=== PATIENT | female | born 1965 | race Two or more races ===

== ENCOUNTER 2020-09-28 07:37 | Outpatient (REF) | payer BC, SELFPAY ==
[2020-09-28 11:14] LABS: MANUAL DIFF FLAG NO
[2020-09-28 11:20] LABS: Basophils Percent Auto 0.4 % (0-2); Eosinophils Absolute Auto 0.2 X10*3/uL (0.0-0.4); Eosinophils Percent Auto 2.8 % (0-4); Hematocrit 45.9 % (37-47); Hemoglobin 14.4 g/dl (12.0-16.0); Imm Gran Abs Auto 0.02 X10*3/uL (0.00-0.03); Imm Gran Pct Auto 0.3 % (0.0-0.4); Lymphocytes Absolute Auto 3.1 X10*3/uL (1.2-4.9); Lymphocytes Percent Auto 43.9 % (20-40); Mean Corpuscular HGB Conc 31.4 g/dl (31.0-35.0); Mean Corpuscular Hemoglobin 28.7 pg (27.0-33.0); Mean Corpuscular Volume 91.4 fL (80-98); Mean Platelet Volume 12.5 fL (9.4-12.3); Monocytes Absolute Auto 0.6 X10*3/uL (0.1-1.2); Monocytes Percent Auto 8.5 % (2-11); Neutrophils Absolute Auto 3.1 X10*3/uL (2.0-8.3); Neutrophils Percent Auto 44.1 % (45-73); Platelet Count 238 X10*3/uL (160-400); Red Blood Count 5.02 X10*6/uL (4.20-5.50); Red Cell Distribution Width 12.7 % (11.0-16.0); White Blood Count 7.1 X10*3/uL (4.8-10.8)
[2020-09-28 11:57] LABS: Alanine Aminotransferase 31 U/L (0-31); Albumin Level 4.4 g/dL (3.5-5.0); Alkaline Phosphatase 76 U/L (39-117); Anion Gap 14 (12-20); Aspartate Amino Transferase 21 U/L (5-31); Bilirubin Direct 0.3 mg/dL (0.0-0.5); Bilirubin Total 1.1 mg/dL (0.0-1.0); Blood Urea Nitrogen 17 mg/dL (9-16); Calcium 9.1 mg/dL (8.4-10.2); Carbon Dioxide 27 mmol/L (22-29); Chloride 105 mmol/L (96-108); Cholesterol 223 mg/dL; Estimated Glomerular Filt Rate > 60; Glucose Fasting 85 mg/dL (60-99); HDL Cholesterol 36 mg/dL; LDL Cholesterol Calculated 113 mg/dl; Potassium 4.5 mmol/l (3.3-5.1); Sodium 141 mmol/L (135-145); Total Protein 7.5 g/dL (6.5-8.0); Triglycerides 372 mg/dL
[2020-09-28 12:00] LABS: TSH reflex Free T4 1.11 mIU/mL (0.32-4.0)
== END 2020-09-28 07:38 | disposition home or self-care (01) ==
LOC: HO.HMGCLDS 07:37
PROVIDERS: PCP Internal Medicine; Visit Provider Internal Medicine
DX: I10 Essential (primary) hypertension (principal)
CPT/HCPCS: 36415; 80048; 80061; 80076; 84443; 85025

== ENCOUNTER 2021-09-04 09:34 | Outpatient (REF) | payer BC, SELFPAY ==
[2021-09-04 11:33] LABS: Appearance Urine HAZY; Color Urine YELLOW; Glucose Urine UA NEG (NEG); Leukocyte Esterase Urine 1+ (NEG); Nitrite Urine NEG (NEG); Specific Gravity - Urine 1.025 (1.005-1.025); UACC Culture Trigger YES; Urine Blood NEG (NEG); Urine Ketones NEG (NEG); Urine Protein NEG (NEG-TRACE)
[2021-09-04 11:41] LABS: MANUAL DIFF FLAG NO
[2021-09-04 11:43] LABS: Basophils Absolute Auto 0.1 X10*3/uL (0.0-0.2); Basophils Percent Auto 0.6 % (0-2); Eosinophils Absolute Auto 0.2 X10*3/uL (0.0-0.4); Eosinophils Percent Auto 2.4 % (0-4); Hematocrit 45.7 % (37.0-47.0); Hemoglobin 14.9 g/dl (12.0-16.0); Imm Gran Abs Auto 0.03 X10*3/uL (0.00-0.03); Imm Gran Pct Auto 0.4 % (0.0-0.4); Lymphocytes Absolute Auto 3.1 X10*3/uL (1.2-4.9); Lymphocytes Percent Auto 39.4 % (20-40); Mean Corpuscular HGB Conc 32.6 g/dl (31.0-35.0); Mean Corpuscular Volume 89.1 fL (80.0-98.0); Mean Platelet Volume 12.2 fL (9.4-12.3); Monocytes Absolute Auto 0.6 X10*3/uL (0.1-1.2); Monocytes Percent Auto 7.9 % (2-11); Neutrophils Absolute Auto 3.8 x10*3/uL (2.0-8.3); Neutrophils Percent Auto 49.3 % (45-73); Platelet Count 248 X10*3/uL (160-400); Red Blood Count 5.13 X10*6/uL (4.20-5.50); White Blood Count 7.8 X10*3/uL (4.8-10.8)
[2021-09-04 11:44] LABS: Mucus Urine TRACE /LPF; RBC Urine 0 /HPF (0); Squamous Epithelial Cell Urine 3+ /LPF
[2021-09-04 12:30] LABS: TSH reflex Free T4 0.92 uIU/mL (0.32-4.0)
[2021-09-04 12:34] LABS: Alanine Aminotransferase 36 U/L (0-31); Albumin Level 4.5 g/dL (3.5-5.0); Alkaline Phosphatase 84 U/L (39-117); Anion Gap 14 (12-20); Aspartate Amino Transferase 24 U/L (5-31); Bilirubin Total 1.4 mg/dL (0.0-1.0); Blood Urea Nitrogen 13 mg/dL (9-16); Calcium 10.2 mg/dL (8.4-10.2); Carbon Dioxide 26 mmol/L (22-29); Chloride 106 mmol/L (96-108); Estimated Glomerular Filt Rate > 60; Glucose Random 82 mg/dL (60-115); Potassium 4.7 mmol/L (3.3-5.1); Sodium 141 mmol/L (135-145); Total Protein 7.7 g/dL (6.5-8.0)
[2021-09-06 04:02] LABS: LDL Cholesterol Direct 139 mg/dL (<100)
== END 2021-09-04 09:35 | disposition home or self-care (01) ==
LOC: HO.HMGCLDS 09:34
PROVIDERS: PCP Internal Medicine; Visit Provider Internal Medicine
DX: I10 Essential (primary) hypertension (principal); M65.312 Trigger thumb, left thumb; M65.322 Trigger finger, left index finger; M65.332 Trigger finger, left middle finger; M65.342 Trigger finger, left ring finger; M65.352 Trigger finger, left little finger; T21.21XA Burn of second degree of chest wall, initial encounter
CPT/HCPCS: 36415; 80053; 81001; 83721; 84443; 85025; 87086

== ENCOUNTER 2022-11-18 06:06 | Outpatient (REF) | payer BC, SELFPAY ==
[2022-11-18 10:58] LABS: MANUAL DIFF FLAG NO
[2022-11-18 11:04] LABS: Basophils Percent Auto 0.4 % (0-2); Eosinophils Absolute Auto 0.2 X10*3/uL (0.0-0.4); Eosinophils Percent Auto 2.4 % (0-4); Hematocrit 46.2 % (37.0-47.0); Imm Gran Abs Auto 0.02 X10*3/uL (0.00-0.03); Imm Gran Pct Auto 0.3 % (0.0-0.4); Lymphocytes Absolute Auto 3.4 X10*3/uL (1.2-4.9); Lymphocytes Percent Auto 49.6 % (20-40); Mean Corpuscular HGB Conc 32.5 g/dl (31.0-35.0); Mean Corpuscular Hemoglobin 28.7 pg (27.0-33.0); Mean Corpuscular Volume 88.3 fL (80.0-98.0); Mean Platelet Volume 12.3 fL (9.4-12.3); Monocytes Absolute Auto 0.6 X10*3/uL (0.1-1.2); Monocytes Percent Auto 9.5 % (2-11); Neutrophils Absolute Auto 2.6 x10*3/uL (2.0-8.3); Neutrophils Percent Auto 37.8 % (45-73); Platelet Count 239 X10*3/uL (160-400); Red Blood Count 5.23 X10*6/uL (4.20-5.50); White Blood Count 6.8 X10*3/uL (4.8-10.8)
[2022-11-18 11:33] LABS: Alanine Aminotransferase 33 U/L (0-31); Albumin Level 4.4 g/dL (3.5-5.0); Alkaline Phosphatase 74 U/L (39-117); Anion Gap 13 (12-20); Aspartate Amino Transferase 30 U/L (5-31); Bilirubin Total 1.5 mg/dL (0.0-1.0); Blood Urea Nitrogen 14 mg/dL (9-16); Calcium 9.8 mg/dL (8.4-10.2); Carbon Dioxide 26 mmol/L (22-29); Chloride 105 mmol/L (96-108); Cholesterol 277 mg/dL; Estimated Glomerular Filt Rate > 60; Glucose Fasting 91 mg/dL (60-99); HDL Cholesterol 38 mg/dL; LDL Cholesterol Calculated 161 mg/dl; Potassium 4.3 mmol/L (3.3-5.1); Sodium 140 mmol/L (135-145); Total Protein 7.4 g/dL (6.5-8.0); Triglycerides 392 mg/dL
[2022-11-23 15:33] LABS: Vitamin D 25-OH, D2 <4 ng/mL; Vitamin D 25-OH, D3 52 ng/mL; Vitamin D 25-OH, Total 52 ng/mL (30-100)
== END 2022-11-18 06:07 | disposition home or self-care (01) ==
LOC: HO.HMGCLDS 06:06
PROVIDERS: PCP Internal Medicine; Visit Provider Internal Medicine
DX: E80.4 Gilbert syndrome (principal); I10 Essential (primary) hypertension; R45.82 Worries; E66.09 Other obesity due to excess calories
CPT/HCPCS: 36415; 80053; 80061; 82306; 85025

== ENCOUNTER 2023-02-17 07:51 | Outpatient (REF) | payer BC, SELFPAY ==
[2023-02-17 12:19] LABS: Alanine Aminotransferase 29 U/L (0-31); Albumin Level 4.4 g/dL (3.5-5.0); Alkaline Phosphatase 84 U/L (39-117); Anion Gap 13 (12-20); Aspartate Amino Transferase 23 U/L (5-31); Bilirubin Total 1.1 mg/dL (0.0-1.0); Blood Urea Nitrogen 14 mg/dL (9-16); Calcium 9.8 mg/dL (8.4-10.2); Carbon Dioxide 26 mmol/L (22-29); Chloride 104 mmol/L (96-108); Cholesterol 156 mg/dL; Estimated Glomerular Filt Rate > 60; Glucose Fasting 85 mg/dL (60-99); HDL Cholesterol 35 mg/dL; LDL Cholesterol Calculated 72 mg/dl; Potassium 4.4 mmol/L (3.3-5.1); Sodium 139 mmol/L (135-145); Total Protein 7.6 g/dL (6.5-8.0); Triglycerides 249 mg/dL
== END 2023-02-17 07:52 | disposition home or self-care (01) ==
LOC: HO.HMGCLDS 07:51
PROVIDERS: PCP Internal Medicine; Visit Provider Internal Medicine
DX: Z00.01 Encounter for general adult medical examination with abnormal findings (principal); I10 Essential (primary) hypertension; E78.9 Disorder of lipoprotein metabolism, unspecified
CPT/HCPCS: 36415; 80053; 80061

== ENCOUNTER 2023-06-18 08:22 | Outpatient (AMB) | payer BC, SELFPAY ==
[2023-06-18 08:29] VITALS: BP 126/80; PULSE 68; O2SAT 95; BMI 31.4
--- NOTE | 2023-06-18 08:29 | MHC.PC.OV ---
Vital Signs 06/18/23 08:29 Height 5 ft 1 in Weight 166 lb 4 oz BMI 31.4 BP 126/80 Blood Pressure Location Rt brachial Position Sitting Pulse 68 Pulse Source Pulse Oximeter Pulse Oximetry (%) 95 Oxygen Delivery Method Room Air Intake Visit Reasons: 6M follow up Allergies pollen Allergy (Unknown, Uncoded 07/09/22 08:27) unknown Medication List - Last Reconciled 06/18/23 by Manoj Capellan MD aspirin (Adult Low Dose Aspirin) 81 mg PO DAILY atenolol 50 mg PO DAILY 90 days cholecalciferol (vitamin D3) 25 mcg PO DAILY simvastatin 10 mg PO DAILY Tobacco use date assessed: 06/18/23 Dental Screening Dental Screen Date: 06/18/23 Did you have a dental visit in the last 12 months?: Yes Did you have a dental problem in the last 6 months where you did not have access to dental care?: No Was dental information given to patient?: Patient has dentist HPI 6M follow up HPI Details Patient is a 58-year-old female came in today for a follow-up appointment Patient is in her usual state of health offer no new complaints today She is taking her medications without any side effects. Blood pressure is stable with atenolol 50 mg Patient is also on simvastatin 10 mg for lipid control and baby aspirin along with vitamin-D supplement Patient is due for labs order placed to be done Follow-up August [facility] Surgical History History of surgery History of foot surgery History of section Family History Father Diabetes mellitus History of heart attack Mother Brain cancer Social History Housing: House Patient Tobacco Use Status: Never used Tobacco e-Cigarette/Vaping Use: Never Used service: No Current occupational status: employed Cognitive needs: No Hearing needs: No Vision needs: Yes Questionnaire PHQ-9 Over the last 2 weeks, how often have you been bothered by any of the following problems? 1. Little interest or pleasure in doing things: not at all 2. Feeling down, depressed, or hopeless: not at all 3. Trouble falling or staying asleep, or sleeping too much: several days 4. Feeling tired or having little energy: several days 5. Poor appetite or overeating: not at all 6. Feeling bad about yourself - or that you are a failure or have let yourself or your family down: not at all 7. Trouble concentrating on things, such as reading the newspaper or watching television: not at all 8. Moving or speaking so slowly that other people could have noticed. Or the opposite - being so fidgety or restless that you have been moving around a lot more than usual: not at all 9. Thoughts that you would be better off or of hurting yourself in some way: not at all Total score: 2 Depression Screening Interpretation: Negative 13432 - PHQ-9 Billing: Yes Source: Developed by Drs. Dario Hathaway, Maki Hicks, Kaushal Cortes and colleagues, with an educational alda from [employer]. Thrive Questionnaire Date Thrive assessed: 09/04/21 AUDIT C Alcohol Use Questionnaire (AUDIT-C) 1. How often do you have a drink containing alcohol?: Never 3. How often do you have six or more drinks on one occasion?: Never Total Score: 0 Score Reviewed/Action Taken: Yes KALYAN-7 AMB Questionnaire KALYAN-7 Date KALYAN - 7 assessed: 09/12/21 Source: Developed by Drs. Dario Hathaway, Maki Hicks, Kaushal Cortes and colleagues, with an educational alda from [employer]. Review of Systems Const Denies chills and Denies fever(s) ENT Denies epistaxis and Denies nasal discharge Card Denies chest pain Resp Denies chest congestion, Denies cough and Denies hemoptysis GI Denies diarrhea and Denies nausea Skin/Breast Denies rash Neuro Reports no additional complaints Psych Reports no additional complaints Endo Reports no additional complaints Physical exam (Primary Care) Vital Signs: Last Vital Signs Pulse 68 06/18/23 08:29 BP 126/80 06/18/23 08:29 Pulse Ox 95 06/18/23 08:29 Oxygen Delivery Method Room Air 06/18/23 08:29 BMI result Body Mass Index 31.4 Tobacco/Smoking Status: Tobacco use Status Tobacco use date assessed 06/18/23 06/18/23 08:32 Patient Tobacco Use Status Never used Tobacco 06/18/23 08:32 e-Cigarette/Vaping Use Never Used 06/18/23 08:32 Depression Screening Interpretation: Negative Thrive Assessment: Date of Thrive Assessment Date Thrive assessed 09/04/21 06/18/23 08:32 Const General: cooperative, comfortable and no acute distress Orientation/consciousness: patient oriented x3 HENMT Head: Yes normocephalic Eyes General: appearance normal, both eyes and all related structures Neck Neck: Yes supple Resp Effort & Inspection: normal respiratory effort, no cough and no stridor Cardio Rhythm: regular rhythm Heart sounds: S1 normal heart sound present and S2 normal heart sound present Skin General skin exam: turgor normal Neuro General: patient oriented x3, tone normal and moves all extremities Extrem Right lower extremity: no edema Left lower extremity: no edema Assessment and Plan Assessment & Plan (1) Hypertension, essential: Code(s): I10 - Essential (primary) hypertension (2) Lipid disorder: Code(s): E78.9 - Disorder of lipoprotein metabolism, unspecified (3) Obesity due to excess calories: Comment: If your BMI is between 25 and 29.9, you are overweight. If your BMI is 30 or greater, you are obese. ___ Being obese is a problem, because it increases the risks of many different health problems. It can also make it hard for you to move, breathe, and do other things that people who are at a healthy weight can do easily. Plus, being obese can be hard emotionally. ___ What are the health risks of being obese? Being obese increases a persons risk of developing many health problems. Here are just a few examples: __ Diabetes High blood pressure, High cholesterol, Heart disease (including heart attacks) Stroke, Sleep apnea (a disorder in which you stop breathing for short periods while asleep) Asthma, Cancer __ Does being obese shorten a persons life? Yes. Studies show that people who are obese younger than people who are a healthy weight. They also show that the risk of goes up the heavier a person is. The degree of increased risk depends on how long the person has been obese, and on what other medical problems he or she has. , Reduce your carbohydrate intake and choose carbs that are complex. Remember as a general rule of thumb, avoid highly processed foods. If it's white and soft, it's probably been stripped of its nutritional value. Change white bread to whole wheat bread, white rice to brown rice, white potatoes to sweet potatoes, white pasta to whole wheat pasta. Monitor portion sizes too: protein should be no bigger than your fist. Limit your red meat intake to only once or twice a wk. Eat more white meat but make sure to avoid creamy sauces etc. Broiling, baking or grilling is best. Increase dark, green leafy vegetables and fruits. Code(s): E66.09 - Other obesity due to excess calories Qualifiers: Obesity classification: adult class 1 (BMI 30 - 34.9) Serious obesity comorbidity presence: with serious comorbidity Body mass index: BMI 31.0-31.9 Qualified Code(s): E66.09 - Other obesity due to excess calories; Z68.31 - Body mass index [BMI] 31.0-31.9, adult Plan Patient is a 58-year-old female came in today for a follow-up appointment Patient is in her usual state of health offer no new complaints today She is taking her medications without any side effects. Blood pressure is stable with atenolol 50 mg Patient is also on simvastatin 10 mg for lipid control and baby aspirin along with vitamin-D supplement BMI is elevated at 31.4, need to lose weight Patient is due for labs order placed to be done Follow-up August Orders: Orders Complete Blood Count Auto Diff Today I10 - Essential (primary) hypertension Comprehensive [place]. Panel Fast Today E78.9 - Disorder of lipoprotein metabolism, unspecified, I10 - Essential (primary) hypertension Lipid Panel Today E78.9 - Disorder of lipoprotein metabolism, unspecified, I10 - Essential (primary) hypertension Coding Level of Care Code Est Pt Level 4 (84196) Diagnoses Hypertension, essential I10 Lipid disorder E78.9 Class 1 obesity due to excess calories with serious comorbidity and body mass index (BMI) of 31.0 to 31.9 in adult E66.09; Z68.31 Obesity classification: adult class 1 (BMI 30 - 34.9) Serious obesity comorbidity presence: with serious comorbidity Body mass index: BMI 31.0-31.9
== END 2023-06-18 15:14 | disposition home or self-care (01) ==
PROVIDERS: Visit Provider Internal Medicine
DX: I10 Essential (primary) hypertension (principal); E78.9 Disorder of lipoprotein metabolism, unspecified; E66.09 Other obesity due to excess calories; Z68.31 Body mass index [BMI] 31.0-31.9, adult
CPT/HCPCS: 99214

== ENCOUNTER 2023-06-18 09:03 | Outpatient (REF) | payer BC, SELFPAY ==
[2023-06-18 11:58] LABS: MANUAL DIFF FLAG NO
[2023-06-18 12:04] LABS: Basophils Percent Auto 0.6 % (0-2); Eosinophils Absolute Auto 0.2 X10*3/uL (0.0-0.4); Eosinophils Percent Auto 2.1 % (0-4); Hematocrit 42.3 % (37.0-47.0); Hemoglobin 13.7 g/dl (12.0-16.0); Imm Gran Abs Auto 0.01 X10*3/uL (0.00-0.03); Imm Gran Pct Auto 0.1 % (0.0-0.4); Lymphocytes Absolute Auto 3.2 X10*3/uL (1.2-4.9); Lymphocytes Percent Auto 45.2 % (20-40); Mean Corpuscular HGB Conc 32.4 g/dl (31.0-35.0); Mean Corpuscular Volume 89.4 fL (80.0-98.0); Mean Platelet Volume 12.7 fL (9.4-12.3); Monocytes Absolute Auto 0.7 X10*3/uL (0.1-1.2); Monocytes Percent Auto 9.2 % (2-11); Neutrophils Percent Auto 42.8 % (45-73); Platelet Count 210 X10*3/uL (160-400); Red Blood Count 4.73 X10*6/uL (4.20-5.50); Red Cell Distribution Width 12.8 % (11.0-16.0)
[2023-06-18 12:14] LABS: Alanine Aminotransferase 31 U/L (0-31); Albumin Level 4.5 g/dL (3.5-5.0); Alkaline Phosphatase 68 U/L (39-117); Anion Gap 13 (12-20); Aspartate Amino Transferase 27 U/L (5-31); Bilirubin Total 1.2 mg/dL (0.0-1.0); Blood Urea Nitrogen 19 mg/dL (9-16); Calcium 9.8 mg/dL (8.4-10.2); Carbon Dioxide 26 mmol/L (22-29); Chloride 104 mmol/L (96-108); Cholesterol 180 mg/dL (<200); Estimated Glomerular Filt Rate > 60; Glucose Fasting 80 mg/dL (60-99); HDL Cholesterol 37 mg/dL (>40); LDL Cholesterol Calculated 119 mg/dL (<100); Potassium 4.4 mmol/L (3.3-5.1); Sodium 139 mmol/L (135-145); Total Protein 7.6 g/dL (6.5-8.0); Triglycerides 121 mg/dL (<150)
== END 2023-06-18 09:04 | disposition home or self-care (01) ==
LOC: HO.HMGCLDS 09:03
PROVIDERS: PCP Internal Medicine; Visit Provider Internal Medicine
DX: I10 Essential (primary) hypertension (principal); E78.9 Disorder of lipoprotein metabolism, unspecified
CPT/HCPCS: 36415; 80053; 80061; 85025

== ENCOUNTER 2023-08-29 07:58 | Outpatient (AMB) | payer BC, SELFPAY ==
[2023-08-29 07:59] VITALS: BP 112/80; PULSE 71; O2SAT 98; BMI 29.3
--- NOTE | 2023-08-29 07:59 | A.OFFPC_ITS ---
Vital Signs 08/29/23 07:59 Height 5 ft 1 in Weight 155 lb BMI 29.3 BP 112/80 Blood Pressure Location Rt brachial Position Sitting Pulse 71 Pulse Source Pulse Oximeter Pulse Oximetry (%) 98 Oxygen Delivery Method Room Air Intake Visit Reasons: 6m follow up Allergies pollen Allergy (Unknown, Uncoded 08/29/23 07:59) unknown Medication List - Last Reconciled 08/29/23 by Manoj Capellan MD aspirin (Adult Low Dose Aspirin) 81 mg PO DAILY atenolol 50 mg PO DAILY 90 days cholecalciferol (vitamin D3) 25 mcg PO DAILY simvastatin 10 mg PO DAILY Tobacco use date assessed: 08/29/23 Dental Screening Dental Screen Date: 08/29/23 HPI 6m follow up HPI Details Patient is a 58-year-old female came in today for a follow-up appointment Patient has modified her diet, eating more fruits and vegetables now She was drinking 7 cups of coffee she has stopped doing that as well It was causing problem with the sleep. Now she is only drinking 2 cups of green tea Patient has managed to lost 9 lb since last seen in May. Blood pressure is stable with atenolol 50 mg Patient is also on simvastatin 10 mg for lipid control and baby aspirin along with vitamin-D supplement Has appointment for physical exam in November Patient will have labs done fasting before visit [facility] Surgical History History of surgery History of foot surgery History of section Family History Father Diabetes mellitus History of heart attack Mother Brain cancer Social History Housing: House Patient Tobacco Use Status: Never used Tobacco e-Cigarette/Vaping Use: Never Used service: No Current occupational status: employed Cognitive needs: No Hearing needs: No Vision needs: Yes Questionnaire PHQ-9 Over the last 2 weeks, how often have you been bothered by any of the following problems? 1. Little interest or pleasure in doing things: not at all 2. Feeling down, depressed, or hopeless: not at all 3. Trouble falling or staying asleep, or sleeping too much: not at all 4. Feeling tired or having little energy: not at all 5. Poor appetite or overeating: not at all 6. Feeling bad about yourself - or that you are a failure or have let yourself or your family down: not at all 7. Trouble concentrating on things, such as reading the newspaper or watching television: not at all 8. Moving or speaking so slowly that other people could have noticed. Or the opposite - being so fidgety or restless that you have been moving around a lot more than usual: not at all 9. Thoughts that you would be better off or of hurting yourself in some way: not at all Total score: 0 Depression Screening Interpretation: Negative Depression Screening Done: Yes 32334 - PHQ-9 Billing: Yes Source: Developed by Drs. Dario Hathaway, Maki Hicks, Kaushal Cortes and colleagues, with an educational alda from [employer]. Thrive Questionnaire Date Thrive assessed: 08/29/23 I am a: Patient What is your living situation today?: I have a steady place to live Within the past 12 months, did the food you bought not last and you didn't have the money to get more?: Never true Within the past 12 months, did you worry whether your food would run out before you got money to buy more?: Never true Do you have trouble paying for medicines?: No Do you have trouble getting transportation to medical appointments?: No Do you have trouble paying your heating and electricity bill?: No Do you have trouble taking care of your child, family member or friend?: No Do you have trouble with day-to-day activities such as bathing, preparing meals, shopping, managing finances, etc.?: No Are you currently unemployed and looking for a job?: No Are you interested in more education?: No AUDIT C Alcohol Use Questionnaire (AUDIT-C) 1. How often do you have a drink containing alcohol?: Never Total Score: 0 KALYAN-7 AMB Questionnaire KALYAN-7 Date KALYAN - 7 assessed: 08/29/23 Feeling nervous, anxious, or on edge: 0 = Not at all Not being able to stop or control worryin = Not at all Worrying too much about different things: 0 = Not at all Trouble relaxin = Not at all Being so restless that it is hard to sit still: 0 = Not at all Becoming easily annoyed or irritable: 0 = Not at all Feeling afraid as if something awful might happen: 0 = Not at all Total KALYAN-7 score (0-4 normal; 5-9 mild; 10-14 moderate; 15-21 severe): 0 Source: Developed by Drs. Dario Hathaway, Maki Hicks, Kaushal Cortes and colleagues, with an educational alda from [employer]. Review of Systems Const Denies chills and Denies fever(s) ENT Denies epistaxis and Denies nasal discharge Card Denies chest pain Resp Denies chest congestion, Denies cough and Denies hemoptysis GI Denies diarrhea and Denies nausea Skin/Breast Denies rash Neuro Reports no additional complaints Psych Reports no additional complaints Endo Reports no additional complaints Physical exam (Primary Care) Vital Signs: Last Vital Signs Pulse 71 08/29/23 07:59 BP 112/80 08/29/23 07:59 Pulse Ox 98 08/29/23 07:59 Oxygen Delivery Method Room Air 08/29/23 07:59 BMI result Body Mass Index 29.3 Tobacco/Smoking Status: Tobacco use Status Tobacco use date assessed 08/29/23 08/29/23 08:04 Patient Tobacco Use Status Never used Tobacco 08/29/23 08:04 e-Cigarette/Vaping Use Never Used 08/29/23 08:04 PHQ-9: PHQ-9 Score PHQ-9: Total score 0 08/29/23 15:07 Depression Screening Interpretation: Negative Thrive Assessment: Date of Thrive Assessment Date Thrive assessed 08/29/23 08/29/23 08:04 Const General: cooperative, comfortable and no acute distress Orientation/consciousness: patient oriented x3 HENMT Head: Yes normocephalic Eyes General: appearance normal, both eyes and all related structures Neck Neck: Yes supple Resp Effort & Inspection: normal respiratory effort, no cough and no stridor Cardio Rhythm: regular rhythm Heart sounds: S1 normal heart sound present and S2 normal heart sound present Skin General skin exam: turgor normal Neuro General: patient oriented x3, tone normal and moves all extremities Extrem Right lower extremity: no edema Left lower extremity: no edema Assessment and Plan Assessment & Plan (1) Hypertension, essential: Code(s): I10 - Essential (primary) hypertension (2) Lipid disorder: Code(s): E78.9 - Disorder of lipoprotein metabolism, unspecified Plan Patient is a 58-year-old female came in today for a follow-up appointment Patient is in her usual state of health offer no new complaints today She is taking her medications without any side effects. Blood pressure is stable with atenolol 50 mg Patient is also on simvastatin 10 mg for lipid control and baby aspirin along with vitamin-D supplement BMI is elevated at 31.4, need to lose weight Patient is due for labs order placed to be done Follow-up August Orders: Orders Complete Blood Count Auto Diff 3 Months E78.9 - Disorder of lipoprotein metabolism, unspecified, I10 - Essential (primary) hypertension Comprehensive [place]. Panel Fast 3 Months E78.9 - Disorder of lipoprotein metabolism, unspecified, I10 - Essential (primary) hypertension Lipid Panel 3 Months E78.9 - Disorder of lipoprotein metabolism, unspecified, I10 - Essential (primary) hypertension Coding Level of Care Code Est Pt Level 3 (63213) Diagnoses Hypertension, essential I10 Lipid disorder E78.9
== END 2023-08-29 11:18 | disposition home or self-care (01) ==
PROVIDERS: Visit Provider Internal Medicine
DX: I10 Essential (primary) hypertension (principal); E78.9 Disorder of lipoprotein metabolism, unspecified
CPT/HCPCS: 99213

== ENCOUNTER 2023-10-30 08:09 | Outpatient (AMB) | payer BC, SELFPAY ==
--- NOTE | 2023-10-30 08:12 | MHC.PC.OV ---
Intake Visit Reasons: Req Labs ~[phone] Allergies pollen Allergy (Unknown, Uncoded 10/30/23 09:06) unknown Medication List - Last Reconciled 10/30/23 by Manoj Capellan MD aspirin (Adult Low Dose Aspirin) 81 mg PO DAILY atenolol 50 mg PO DAILY 90 days cholecalciferol (vitamin D3) 25 mcg PO DAILY simvastatin 10 mg PO DAILY Tobacco use date assessed: 10/30/23 Dental Screening Dental Screen Date: 10/30/23 Did you have a dental visit in the last 12 months?: Yes Did you have a dental problem in the last 6 months where you did not have access to dental care?: No Was dental information given to patient?: Patient has dentist HPI Req Labs ~[phone] HPI Details Patient is 58-year-old female this is a telemedicine visit Patient is trying to lose and has been successful to lose 15 lb since 29 of August She is eating more fruits and vegetables Patient is feeling well However there is lack of libido which is causing some stress in marriage Patient does not speak well Sinhala, I spoke to her and we discussed it for there I think it will be better if both of them sit down and talk about it and find out what exactly is the problem If she is having vaginal dryness or pain with intercourse I can help her with estrogen cream locally There is a new order for labs as well patient can go ahead and have that done. [facility] Surgical History History of surgery History of foot surgery History of section Family History Father Diabetes mellitus History of heart attack Mother Brain cancer Social History Housing: House Patient Tobacco Use Status: Never used Tobacco e-Cigarette/Vaping Use: Never Used service: No Current occupational status: employed Cognitive needs: No Hearing needs: No Vision needs: Yes Questionnaire PHQ-9 Over the last 2 weeks, how often have you been bothered by any of the following problems? 1. Little interest or pleasure in doing things: not at all 2. Feeling down, depressed, or hopeless: not at all 3. Trouble falling or staying asleep, or sleeping too much: not at all 4. Feeling tired or having little energy: not at all 5. Poor appetite or overeating: not at all 6. Feeling bad about yourself - or that you are a failure or have let yourself or your family down: not at all 7. Trouble concentrating on things, such as reading the newspaper or watching television: not at all 8. Moving or speaking so slowly that other people could have noticed. Or the opposite - being so fidgety or restless that you have been moving around a lot more than usual: not at all 9. Thoughts that you would be better off or of hurting yourself in some way: not at all Total score: 0 Depression Screening Interpretation: Negative Depression Screening Done: Yes 20197 - PHQ-9 Billing: Yes Source: Developed by Drs. Dario Hathaway, Maki Hicks, Kaushal Cortes and colleagues, with an educational alda from [employer]. Thrive Questionnaire Date Thrive assessed: 10/30/23 I am a: Patient What is your living situation today?: I have a steady place to live Within the past 12 months, did the food you bought not last and you didn't have the money to get more?: Never true Within the past 12 months, did you worry whether your food would run out before you got money to buy more?: Never true Do you have trouble paying for medicines?: No Do you have trouble getting transportation to medical appointments?: No Do you have trouble paying your heating and electricity bill?: No Do you have trouble taking care of your child, family member or friend?: No Do you have trouble with day-to-day activities such as bathing, preparing meals, shopping, managing finances, etc.?: No Are you currently unemployed and looking for a job?: No Are you interested in more education?: No Please select the resources that you would like help with: None Currently or been in a relationship where the following occur: no concerns reported THRIVE Score: 0 AUDIT C Alcohol Use Questionnaire (AUDIT-C) 1. How often do you have a drink containing alcohol?: Never 3. How often do you have six or more drinks on one occasion?: Never Total Score: 0 Score Reviewed/Action Taken: Yes KALYAN-7 AMB Questionnaire KALYAN-7 Date KALYAN - 7 assessed: 10/30/23 Feeling nervous, anxious, or on edge: 0 = Not at all Not being able to stop or control worryin = Not at all Worrying too much about different things: 0 = Not at all Trouble relaxin = Not at all Being so restless that it is hard to sit still: 0 = Not at all Becoming easily annoyed or irritable: 0 = Not at all Feeling afraid as if something awful might happen: 0 = Not at all Total KALYAN-7 score (0-4 normal; 5-9 mild; 10-14 moderate; 15-21 severe): 0 Source: Developed by Drs. Dario Hathaway, Maki Hicks, Kaushal Cortes and colleagues, with an educational alda from [employer]. KALYAN-7 Assessment Billing KALYAN-7 Assessment Tool: KALYAN-7 Assessment 79809 Review of Systems Const Denies chills and Denies fever(s) ENT Denies epistaxis and Denies nasal discharge Card Denies chest pain Resp Denies chest congestion, Denies cough and Denies hemoptysis GI Denies diarrhea and Denies nausea Skin/Breast Denies rash Neuro Reports no additional complaints Psych Reports no additional complaints Endo Reports no additional complaints Physical exam (Primary Care) Tobacco/Smoking Status: Tobacco use Status Tobacco use date assessed 10/30/23 10/30/23 09:08 Patient Tobacco Use Status Never used Tobacco 10/30/23 08:13 e-Cigarette/Vaping Use Never Used 10/30/23 08:13 PHQ-9: PHQ-9 Score PHQ-9: Total score 0 10/30/23 09:08 Depression Screening Interpretation: Negative Thrive Assessment: Date of Thrive Assessment Date Thrive assessed 10/30/23 10/30/23 09:08 Currently or been in a relationship where the following occur: no concerns reported Telehealth Telehealth Location of provider rendering services: practice address Location of patient: address on file Patient Identification confirmed using: Name, : Yes Telehealth method: voice only Patient verbally consented to treatment: Yes Patient verbally consented to billing insurance company: Yes Patient informed of any privacy concerns related to visit: Yes Minutes spent on Phone/Video with Pt.: 13 Assessment and Plan Assessment & Plan (1) Lack of libido: Code(s): 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 Plan Patient is 58-year-old female this is a telemedicine visit Patient is trying to lose and has been successful to lose 15 lb since 29 of August She is eating more fruits and vegetables Patient is feeling well However there is lack of libido which is causing some stress in marriage Patient does not speak well Sinhala, I spoke to her and we discussed it for there I think it will be better if both of them sit down and talk about it and find out what exactly is the problem If she is having vaginal dryness or pain with intercourse I can help her with estrogen cream locally There is a new order for labs as well patient can go ahead and have that done. Coding Level of Care Code Tele Est Pt Level 3 (95153) Diagnoses Lack of libido F52.0 Additional Codes KALYAN-7 Assessment Billing - KALYAN-7 Assessment Tool: KALYAN-7 Assessment [id number] ([id number])
== END 2023-10-30 16:06 | disposition home or self-care (01) ==
LOC: HO.HMGC 08:09
PROVIDERS: PCP Internal Medicine; Visit Provider Internal Medicine
DX: F52.0 Hypoactive sexual desire disorder (principal)
CPT/HCPCS: 99442

== ENCOUNTER 2023-11-27 07:43 | Outpatient (REF) | payer BC, SELFPAY ==
[2023-11-27 10:36] LABS: MANUAL DIFF FLAG NO
[2023-11-27 10:52] LABS: Basophils Percent Auto 0.4 % (0-2); Eosinophils Absolute Auto 0.2 X10*3/uL (0.0-0.4); Eosinophils Percent Auto 2.4 % (0-4); Hematocrit 41.3 % (37.0-47.0); Hemoglobin 13.6 g/dl (12.0-16.0); Imm Gran Abs Auto 0.02 X10*3/uL (0.00-0.03); Imm Gran Pct Auto 0.3 % (0.0-0.4); Lymphocytes Absolute Auto 2.8 X10*3/uL (1.2-4.9); Lymphocytes Percent Auto 39.5 % (20-40); Mean Corpuscular HGB Conc 32.9 g/dl (31.0-35.0); Mean Corpuscular Hemoglobin 29.1 pg (27.0-33.0); Mean Corpuscular Volume 88.4 fL (80.0-98.0); Mean Platelet Volume 12.7 fL (9.4-12.3); Monocytes Absolute Auto 0.6 X10*3/uL (0.1-1.2); Monocytes Percent Auto 8.1 % (2-11); Neutrophils Absolute Auto 3.5 x10*3/uL (2.0-8.3); Neutrophils Percent Auto 49.3 % (45-73); Platelet Count 214 X10*3/uL (160-400); Red Blood Count 4.67 X10*6/uL (4.20-5.50); Red Cell Distribution Width 13.1 % (11.0-16.0); White Blood Count 7.1 X10*3/uL (4.8-10.8)
[2023-11-27 10:55] LABS: Alanine Aminotransferase 13 U/L (0-31); Albumin Level 4.3 g/dL (3.5-5.0); Alkaline Phosphatase 67 U/L (39-117); Anion Gap 10 (12-20); Aspartate Amino Transferase 14 U/L (5-31); Bilirubin Total 1.1 mg/dL (0.0-1.0); Blood Urea Nitrogen 27 mg/dL (9-16); Calcium 9.8 mg/dL (8.4-10.2); Carbon Dioxide 26 mmol/L (22-29); Chloride 106 mmol/L (96-108); Cholesterol 160 mg/dL (<200); Estimated Glomerular Filt Rate > 60; Glucose Fasting 85 mg/dL (60-99); HDL Cholesterol 47 mg/dL (>40); LDL Cholesterol Calculated 96 mg/dL (<100); Sodium 138 mmol/L (135-145); Total Protein 7.4 g/dL (6.5-8.0); Triglycerides 86 mg/dL (<150)
== END 2023-11-27 07:44 | disposition home or self-care (01) ==
LOC: HO.HMGCLDS 07:43
PROVIDERS: PCP Internal Medicine; Visit Provider Internal Medicine
DX: I10 Essential (primary) hypertension (principal); E78.9 Disorder of lipoprotein metabolism, unspecified
CPT/HCPCS: 36415; 80053; 80061; 85025

== ENCOUNTER 2023-11-28 08:26 | Outpatient (AMB) | payer BC, SELFPAY ==
[2023-11-28 08:29] VITALS: BP 128/64; PULSE 64; O2SAT 98; BMI 28.2
--- NOTE | 2023-11-28 08:29 | A.OFFPC_ITS ---
Vital Signs 11/28/23 08:29 Height 5 ft 1 in Weight 149 lb 2 oz BMI 28.2 BP 128/64 Blood Pressure Location Rt brachial Position Sitting Pulse 64 Pulse Source Pulse Oximeter Pulse Oximetry (%) 98 Oxygen Delivery Method Room Air Intake Visit Reasons: PE Allergies pollen Allergy (Unknown, Uncoded 10/30/23 09:06) unknown Medication List - Last Reconciled 11/28/23 by Manoj Capellan MD aspirin (Adult Low Dose Aspirin) 81 mg PO DAILY atenolol 50 mg PO DAILY 90 days cholecalciferol (vitamin D3) 25 mcg PO DAILY simvastatin 10 mg PO DAILY Tobacco use date assessed: 11/28/23 Dental Screening Dental Screen Date: 11/28/23 Did you have a dental visit in the last 12 months?: Yes Did you have a dental problem in the last 6 months where you did not have access to dental care?: No Was dental information given to patient?: Patient has dentist HPI PE HPI Details Physical exam appointment, patient is 58-year-old female Blood pressure is stable patient is on atenolol 50 mg And simvastatin 10 mg, LDL within reasonable range Labs were done recently reviewed with the patient Mammogram was August of 2023, Pap smear through OBG[facility] Colonoscopy appointment coming up with gastroenterology December 23 of this year BMI 28.2 patient is slightly overweight trying to lose weight PFSH Surgical History History of surgery History of foot surgery History of section Family History Father Diabetes mellitus History of heart attack Mother Brain cancer Social History Housing: House Patient Tobacco Use Status: Never used Tobacco e-Cigarette/Vaping Use: Never Used service: No Current occupational status: employed Cognitive needs: No Hearing needs: No Vision needs: Yes Questionnaire Thrive Questionnaire Date Thrive assessed: 10/30/23 AUDIT C Alcohol Use Questionnaire (AUDIT-C) 1. How often do you have a drink containing alcohol?: Never 3. How often do you have six or more drinks on one occasion?: Never Total Score: 0 Score Reviewed/Action Taken: Yes KALYAN-7 AMB Questionnaire KALYAN-7 Date KALYAN - 7 assessed: 10/30/23 Source: Developed by Drs. Dario Hathaway, Maki Hicks, Kaushal Cortes and colleagues, with an educational alda from [employer]. Review of Systems Const Denies chills, Denies fever(s) and Denies headache(s) Eyes Denies blurry vision ENT Denies headache(s), Denies nasal discharge, Denies nasal obstruction, Denies odynophagia and Denies sinus pain Card Denies chest pain at rest and Denies chest pain with activity Resp Denies cough and Denies hemoptysis GI Denies diarrhea, Denies odynophagia, Denies vomiting and Denies hematemesis Reports as per HPI Musc Denies abnormal gait Skin/Breast Reports as per HPI Neuro Denies Neuro-related abnormal movements, Denies Abnormal speech present, Denies abnormal gait, Denies headache(s) and Denies Sensory deficit (Neuro) Psych Denies mood swings and Denies paranoia Endo Reports as per HPI Harmeet/Lymph Reports as per HPI Aller/Immun Reports as per HPI Physical exam (Primary Care) Vital Signs: Last Vital Signs Pulse 64 11/28/23 08:29 BP 128/64 11/28/23 08:29 Pulse Ox 98 11/28/23 08:29 Oxygen Delivery Method Room Air 11/28/23 08:29 BMI result Body Mass Index 28.2 Tobacco/Smoking Status: Tobacco use Status Tobacco use date assessed 11/28/23 11/28/23 08:31 Patient Tobacco Use Status Never used Tobacco 11/28/23 08:31 e-Cigarette/Vaping Use Never Used 11/28/23 08:31 Thrive Assessment: Date of Thrive Assessment Date Thrive assessed 10/30/23 11/28/23 08:31 Const General: cooperative, comfortable and no acute distress Orientation/consciousness: patient oriented x3 HENMT Head: Yes normocephalic and Yes atraumatic Eyes General: appearance normal, both eyes and all related structures Pupils: Equal, round and reactive pupils present EOM: EOMs intact bilaterally Neck Neck: Yes supple and No lymphadenopathy Thyroid: Thyroid normal Lymphatic: no lymphadenopathy noted Resp Effort & Inspection: normal respiratory effort and able to speak in complete sentences Auscultation: clear to auscultation bilaterally Cardio Heart sounds: S1 normal heart sound present and S2 normal heart sound present GI Palpation (GI): Soft to palpation and nontender Auscultation: normal bowel sounds General: Yes no CVA tenderness Back/Spine/Pelvis Back: no CVA tenderness Skin General skin exam: elasticity normal and turgor normal Neuro General: patient oriented x3 and gait normal Cranial nerves: Yes Equal, round and reactive pupils present Speech: No Abnormal speech present Sensory Exam: No Sensory deficit (Neuro) Coordination: tandem gait normal and Romberg test negative Extrem General: Yes normal exam except as noted and No edema Assessment and Plan Assessment & Plan (1) Encounter for general adult medical examination with abnormal findings: Code(s): Z00.01 - Encounter for general adult medical examination with abnormal findings (2) Hypertension, essential: Code(s): I10 - Essential (primary) hypertension (3) Lipid disorder: Code(s): E78.9 - Disorder of lipoprotein metabolism, unspecified (4) Gilbert syndrome: Code(s): E80.4 - Gilbert syndrome Plan Physical exam appointment, patient is 58-year-old female Blood pressure is stable patient is on atenolol 50 mg And simvastatin 10 mg, LDL within reasonable range Labs were done recently reviewed with the patient Mammogram was August of 2023, Pap smear through [facility] Colonoscopy appointment coming up with gastroenterology December 23 of this year BMI 28.2 patient is slightly overweight trying to lose weight Orders: Orders Comprehensive [place]. Panel Fast Today E78.9 - Disorder of lipoprotein metabolism, unspecified, I10 - Essential (primary) hypertension Lipid Panel 5 Months E78.9 - Disorder of lipoprotein metabolism, unspecified, I10 - Essential (primary) hypertension Medications: Refilled simvastatin 10 mg PO DAILY 90 tabs 1RF atenolol 50 mg PO DAILY 90 tabs 1RF 90 days I10 - Essential (primary) hypertension Coding Level of Care Code Est Pt Prev Care 40-64y(69739) Diagnoses Encounter for general adult medical examination with abnormal findings Z00.01 Hypertension, essential I10 Lipid disorder E78.9 Gilbert syndrome E80.4
== END 2023-11-28 09:41 | disposition home or self-care (01) ==
PROVIDERS: Visit Provider Internal Medicine
DX: Z00.00 Encounter for general adult medical examination without abnormal findings (principal); I10 Essential (primary) hypertension; E78.9 Disorder of lipoprotein metabolism, unspecified; E80.4 Gilbert syndrome
CPT/HCPCS: 99396

== ENCOUNTER 2023-12-24 08:14 | Outpatient (AMB) | payer BC, SELFPAY ==
[2023-12-24 08:16] VITALS: BP 124/71; PULSE 65; O2SAT 98; BMI 27.7
--- NOTE | 2023-12-24 08:16 | MHC.OFFVIS ---
Intake Vital Signs 12/24/23 08:16 Height 5 ft 1 in Weight 146 lb 13.246 oz BMI 27.7 BP 124/71 Blood Pressure Location Lt brachial Position Sitting Pulse 65 Pulse Source Pulse Oximeter Pulse Oximetry (%) 98 Oxygen Delivery Method Room Air Intake Visit Reasons: Colonoscopy Screening Intake Note: pt here for colonoscopy screening, no concerns. Information Interpreted: non-clinical & clinical Accompanied by: Self / Same As Patient Allergies pollen Allergy (Unknown, Uncoded 12/24/23 08:19) unknown HPI Colonoscopy Screening HPI Details 58 year old? female here today for pre colonoscopy screening.? Patient was sent to us by her PCP.? Last colonoscopy 10 years ago.? Patient reports that she did not understand directions and she ate day before the procedure and her colonoscopy was incomplete. Patient states that was done at [facility]. Patient reports that she would rather be told not to go through it at that time. Patient understands about the importance of prepping day before procedure. Patient denies any gastrointestinal symptoms in the past or at present.? Denies any personal or family history of gastrointestinal disease, colon polyps, or cancer.? Denies history of difficulty with sedation or anesthesia in the past.? Negative for history of sleep apnea.? Denies any history of cardiac, renal, pulmonary, or hepatic disease.?? No history of infectious? diseases like hepatitis A, B, C, HIV or tuberculosis.? Patient is on low-dose aspirin. [facility] Surgical History History of surgery History of foot surgery History of section Family History Father Diabetes mellitus History of heart attack Mother Brain cancer Social History Housing: House Patient Tobacco Use Status: Never used Tobacco e-Cigarette/Vaping Use: Never Used service: No Current occupational status: employed Cognitive needs: No Hearing needs: No Vision needs: Yes Review of Systems Const Denies weight gain and Denies weight loss ENT Reports no additional complaints, Denies dysphagia and Denies odynophagia Card Reports no additional complaints Resp Reports no additional complaints GI Denies abdominal pain, Denies belching, Denies melena, Denies bloating, Denies change in bowel habits, Denies dysphagia, Denies excessive flatus, Denies dyspepsia, Denies heartburn, Denies diarrhea, Denies loose stools, Denies nausea, Denies odynophagia and Denies vomiting Musc Reports no additional complaints Neuro Reports no additional complaints Psych Reports no additional complaints Endo Reports no additional complaints Physical Exam Vital Signs: Last Vital Signs Pulse 65 12/24/23 08:16 BP 124/71 12/24/23 08:16 Pulse Ox 98 12/24/23 08:16 Oxygen Delivery Method Room Air 12/24/23 08:16 BMI result Body Mass Index 27.7 Const General: healthy appearing, no acute distress and well developed Nutritional Appearance: well nourished Orientation/consciousness: patient oriented x3 Resp Effort & Inspection: normal respiratory effort, able to speak in complete sentences, no tracheal deviation and symmetric chest movement Auscultation: clear to auscultation bilaterally Cardio Rate: regular rate GI Inspection: Yes normal to inspection and No distended Palpation (GI): Soft to palpation, not firm, nontender and No hepatosplenomegaly present Auscultation: normal bowel sounds General: Yes no CVA tenderness Back/Spine/Pelvis Back: no CVA tenderness Skin General skin exam: elasticity normal, turgor normal and dry skin Neuro General: patient oriented x3 Psych Appearance: grossly normal Mental Status: mental status grossly normal Assessment & Plan Assessment & Plan (1) Colon cancer screening: Code(s): Z12.11 - Encounter for screening for malignant neoplasm of colon Plan Patient denies any GI, cardiac or respiratory symptoms.? Denies any issues with anesthesia in the past.? Denies any history of sleep apnea.? No history infectious diseases in the past or present.?On low dose aspirin. No family or personal history of colon cancer or polyps.? Patient denies melena, hematochezia, unintentional weight loss or ribbon like stools.? Discussed at length the pre-procedure,? prep, diet & medications as well as what to expect prior, during and after the procedure.??Due to occasional constipation patient will start Dulcolax prep 1 week before procedure with 4 tablets of Dulcolax at noon day before procedure followed by split MiraLax prep. Stressed the importance of good bowel prep. ?Recommended the use of Vaseline or Calmoseptine OTC & baby wipes with bowel movements to promote comfort.? ?Patient verbalizes understanding and agrees to plan of care.? She was given the opportunity to ask questions and all questions answered.? We will see her after the procedure.? Medications: New bisacodyl (Dulcolax (bisacodyl)) Start taking 2 tablet every night 7 days before the procedure and 1 day before procedure take 4 tablets at noon time followed by MiraLax prep 10 mg (2 x 5 mg) PO BEDTIME 16 tabs 0RF Z12.11 - Encounter for screening for malignant neoplasm of colon polyethylene glycol 3350 (Miralax) As directed by gastroenterology department at [facility] 238 grams PO ONCE 238 grams 0RF Z12.11 - Encounter for screening for malignant neoplasm of colon Coding Level of Care Code New Pt Level 3 (78765) Diagnoses Colon cancer screening Z12.11 Time Spent (min) 40 Comment 30 minutes spent with patient and additional 10 minutes spent reviewing her records
== END 2023-12-24 09:12 | disposition home or self-care (01) ==
PROVIDERS: PCP Internal Medicine; Visit Provider Nurse Practitioner Family
DX: Z01.818 Encounter for other preprocedural examination (principal); Z12.11 Encounter for screening for malignant neoplasm of colon
CPT/HCPCS: S0285

== ENCOUNTER → 2023-12-24 08:14 | Outpatient (BNVA) | payer BC, SELFPAY | PROVIDERS: PCP Internal Medicine; Visit Provider Nurse Practitioner Family ==

== ENCOUNTER 2024-05-21 09:45 | Day surgery (SDC) | payer BC, SELFPAY ==
[2024-05-21] VITALS (7 sets, daily range): BP systolic 79–131; BP diastolic 45–75; PULSE 70–82; RESP 16; TEMP 36.1–36.6; O2SAT 90–99; BMI 24.7
--- NOTE | 2024-05-21 10:26 | P.HPSUR_ITS ---
Pre-Procedural Eval Section A - 24 Hr Update-Section A only Date of Service: 05/21/24 Section B - Complete if H&P > 30 days Chief Complaint: screening Relevant Family History (Specify if Yes): No Relevant Social History: None Present Medications: see Short Stay Collaborative assessment Medical History: Significant History (HTN< HLP) History of Previous Operations: Relevant previous surgery/procedure and date(s) (History of surgery History of foot surgery History of section) Allergies: Allergies Allergy/AdvReac Type Severity Reaction Status Date / Time pollen Allergy Unknown unknown Uncoded 12/24/23 08:19 Review of Systems Sugical H&P ROS: Negative: Constitution, Cardiovascular, Respiratory, Neurological, Psychiatric, Hem-Onc, Allergic/Immunologic, Gastrointestinal, Genitourinary, Musculoskeletal, Integumentary, Endocrine and Eyes/Ears/Nose/ Throat Exam Surgical H&P Exam: Normal: HEENT, Normal: Heart, Normal: Lungs, Normal: Extremities, Normal: Abdomen, Normal: Skin and Normal: Neurological Plan Diagnosis/Plan: Unchanged I have reviewed the history and physical and performed a pertinent physical examination on my patient. No changes have occurred unless specified. Time Spent With Patient Time: Total time managing care of this patient today ____ minutes.
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
[2024-05-21] MEDS: Lactated Ringers 1,000 ML 100 ML IVCONT (10:50)
--- NOTE | 2024-05-21 11:14 | HO.OPN-COLON ---
Colonoscopy Operative Note Operative Note Date of Service: 05/21/24 Narrative: Operative Information Procedure Description: Colonoscopy Indication: screening Anesthesia: MAC COLONOSCOPY Instrument: Olympus variable stiffness pediatric scope 190L Colonoscopy Monitoring: Vital signs and clinical assessment, continuous EKG monitoring, Pulse oximetry, Carbon Dioxide monitoring and blood pressure monitoring were done throughout the procedure. Colon withdrawal time was 10 minutes. Procedure: The patient was placed in the left lateral decubitis position and pre-procedure medications were administered. After a digital rectal examination of the ano-rectum, the video colonoscope was inserted into the rectum and advanced through the colon to the cecum/TI. The colonoscope was slowly withdrawn in a retrograde panoramic fashion and the colon mucosa was carefully examined including a retroflexed view of the rectum. Findings and interventions are described below. Procedure Difficulty: moderate, pressure applied due to tortuous colon Findings: Terminal Ileum-not intubated due to tortuous colon and looping Cecum:normal Ascending Colon: normal Transverse Colon -normal Descending Colon:normal Sigmoid Colon: normal Rectum: Retroflexion with small internal hemorrhoids seen, grade I Anorectum - normal Intervention: none Colon preparation: [place] Bowel Preparation Scale Right colon; 2 Transverse colon: 2 Left colon; 2 (0 = Unprepared colon segment with mucosa not seen due to solid stool that cannot be cleared. 1 = Portion of mucosa of the colon segment seen, but other areas of the colon segment not well seen due to staining, residual stool and/or opaque liquid. 2 = Minor amount of residual staining, small fragments of stool and/or opaque liquid, but mucosa of colon segment seen well. 3 = Entire mucosa of colon segment seen well with no residual staining, small fragments of stool or opaque liquid) Impression and Post Procedure Diagnosis: internal hemorrhoids Plan: High fiber diet leaflet Avoid straining at stool, epsom salts and sitz bath, anusol supps or cream Repeat Colonoscopy in 10 years or earlier if clinically indicated Above findings were reviewed with the patient and relevant handouts were provided if indicated.
--- NOTE | 2024-05-21 11:33 | HO.POSTANES ---
Post Anesthesia Evaluation Post Anesthesia Evaluation Date of Service: 05/21/24 Vital Signs: Vital Signs Temp Pulse Resp BP Pulse Ox O2 Del Method 05/21/24 11:30 92/50 L 97 Room Air 05/21/24 11:25 91/47 L 95 Room Air 05/21/24 11:21 16 89/45 L 90 L Room Air 05/21/24 11:20 97.9 F 77 16 79/47 L 95 Room Air 05/21/24 10:30 97.6 F 82 16 129/73 99 Room Air Anesthesia: Monitored Mental Status: Awake Pain Control: Satisfactory Nausea/Vomiting: None Hydration: Adequate Anesthesia-Related Issues: No Anes. Related Issues
== END 2024-05-21 12:10 | disposition home or self-care (01) ==
PROVIDERS: PCP Internal Medicine; Visit Provider Internal Medicine Gastroenterology
PROC: 0DJD8ZZ Inspection of Lower Intestinal Tract, Via Natural or Artificial Opening Endoscopic (ICD-10-PCS; CPT 45378; principal; 2024-05-21 11:10)
DX: Z12.11 Encounter for screening for malignant neoplasm of colon (principal); K64.0 First degree hemorrhoids; Q43.8 Other specified congenital malformations of intestine; I10 Essential (primary) hypertension; E78.5 Hyperlipidemia, unspecified; Z79.82 Long term (current) use of aspirin; Z79.899 Other long term (current) drug therapy; Z98.890 Other specified postprocedural states
CPT/HCPCS: 45378; J2704

== ENCOUNTER → 2024-05-21 09:45 | Outpatient (BNV) | payer BC, SELFPAY | PROVIDERS: PCP Internal Medicine; Visit Provider Internal Medicine Gastroenterology | DX: Z12.11 Encounter for screening for malignant neoplasm of colon (principal); K64.0 First degree hemorrhoids | CPT/HCPCS: 45378 ==

== ENCOUNTER 2024-06-04 09:05 | Outpatient (AMB) | payer BC, SELFPAY ==
[2024-06-04 09:17] VITALS: BP 102/64; PULSE 64; O2SAT 99; BMI 26.0
--- NOTE | 2024-06-04 09:17 | A.OFFPC_ITS ---
Vital Signs 06/04/24 09:17 Height 5 ft 2 in Weight 142 lb 2 oz BMI 26.0 BP 102/64 Blood Pressure Location Lt brachial Position Sitting Pulse 64 Pulse Source Pulse Oximeter Pulse Oximetry (%) 99 Oxygen Delivery Method Room Air Intake Visit Reasons: 6 month follow up Allergies pollen Allergy (Unknown, Uncoded 12/24/23 08:19) unknown Medication List - Last Reconciled 06/04/24 by Manoj Capellan MD aspirin (Adult Low Dose Aspirin) 81 mg PO DAILY atenolol 50 mg PO DAILY 90 days bisacodyl (Dulcolax (bisacodyl)) 10 mg (2 x 5 mg) PO BEDTIME cholecalciferol (vitamin D3) 25 mcg PO DAILY polyethylene glycol 3350 (Miralax) 238 grams PO ONCE simvastatin 10 mg PO DAILY Tobacco use date assessed: 06/04/24 Dental Screening Dental Screen Date: 06/04/24 Did you have a dental visit in the last 12 months?: Yes Did you have a dental problem in the last 6 months where you did not have access to dental care?: No Was dental information given to patient?: Patient has dentist HPI 6 month follow up HPI Details Patient is a 59-year-old female came in today for a follow-up appointment Patient is in her usual state of health offer no new complaints today She is taking her medications without any side effects. 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 1. Little interest or pleasure in doing things: not at all 2. Feeling down, depressed, or hopeless: not at all 3. Trouble falling or staying asleep, or sleeping too much: several days 4. Feeling tired or having little energy: several days 5. Poor appetite or overeating: not at all 6. Feeling bad about yourself - or that you are a failure or have let yourself or your family down: not at all 7. Trouble concentrating on things, such as reading the newspaper or watching television: not at all 8. Moving or speaking so slowly that other people could have noticed. Or the opposite - being so fidgety or restless that you have been moving around a lot more than usual: not at all 9. Thoughts that you would be better off or of hurting yourself in some way: not at all Total score: 2 Depression Screening Interpretation: Negative Depression Screening Done: Yes 37458 - PHQ-9 Billing: Yes Source: Developed by Drs. Dario Hathaway, Maki Hicks, Kaushal Cortes and colleagues, with an educational alda from [employer]. Thrive Questionnaire Date Thrive assessed: 06/04/24 I am a: Patient What is your living situation today?: I have a steady place to live Within the past 12 months, did the food you bought not last and you didn't have the money to get more?: Never true Within the past 12 months, did you worry whether your food would run out before you got money to buy more?: Never true Do you have trouble paying for medicines?: No Do you have trouble getting transportation to medical appointments?: No Do you have trouble paying your heating and electricity bill?: No Do you have trouble taking care of your child, family member or friend?: No Do you have trouble with day-to-day activities such as bathing, preparing meals, shopping, managing finances, etc.?: No Are you currently unemployed and looking for a job?: No Are you interested in more education?: No Please select the resources that you would like help with: None Currently or been in a relationship where the following occur: No concerns reported THRIVE Score: 0 AUDIT C Alcohol Use Questionnaire (AUDIT-C) 1. How often do you have a drink containing alcohol?: Never 3. How often do you have six or more drinks on one occasion?: Never Total Score: 0 Score Reviewed/Action Taken: Yes KALYAN-7 AMB Questionnaire KALYAN-7 Date KALYAN - 7 assessed: 06/04/24 Feeling nervous, anxious, or on edge: 0 = Not at all Not being able to stop or control worryin = Not at all Worrying too much about different things: 0 = Not at all Trouble relaxin = Not at all Being so restless that it is hard to sit still: 0 = Not at all Becoming easily annoyed or irritable: 0 = Not at all Feeling afraid as if something awful might happen: 0 = Not at all Total KALYAN-7 score (0-4 normal; 5-9 mild; 10-14 moderate; 15-21 severe): 0 Source: Developed by Drs. Dario Hathaway, Maki Hicks, Kaushal Cortes and colleagues, with an educational alda from [employer]. KALYAN-7 Assessment Billing KALYAN-7 Assessment Tool: KALYAN-7 Assessment 79518 Review of Systems Const Denies chills and Denies fever(s) ENT Denies epistaxis and Denies nasal discharge Card Denies chest pain Resp Denies chest congestion, Denies cough and Denies hemoptysis GI Denies diarrhea and Denies nausea Skin/Breast Denies rash Neuro Reports no additional complaints Psych Reports no additional complaints Endo Reports no additional complaints Physical exam (Primary Care) Vital Signs: Last Vital Signs Pulse 64 06/04/24 09:17 BP 102/64 06/04/24 09:17 Pulse Ox 99 06/04/24 09:17 Oxygen Delivery Method Room Air 06/04/24 09:17 BMI result Body Mass Index 26.0 Tobacco/Smoking Status: Tobacco use Status Tobacco use date assessed 06/04/24 06/04/24 09:21 Patient Tobacco Use Status Never used Tobacco 06/04/24 09:21 e-Cigarette/Vaping Use Never Used 06/04/24 09:21 PHQ-9: PHQ-9 Score PHQ-9: Total score 2 06/04/24 09:21 Depression Screening Interpretation: Negative Thrive Assessment: Date of Thrive Assessment Date Thrive assessed 06/04/24 06/04/24 09:21 Currently or been in a relationship where the following occur: No concerns reported Const General: cooperative, comfortable and no acute distress Orientation/consciousness: patient oriented x3 HENMT Head: Yes normocephalic Eyes General: appearance normal, both eyes and all related structures Neck Neck: Yes supple Resp Effort & Inspection: normal respiratory effort, no cough and no stridor Cardio Rhythm: regular rhythm Heart sounds: S1 normal heart sound present and S2 normal heart sound present Skin General skin exam: turgor normal Neuro General: patient oriented x3, tone normal and moves all extremities Extrem Right lower extremity: no edema Left lower extremity: no edema Assessment and Plan Assessment & Plan (1) Hypertension, essential: Code(s): I10 - Essential (primary) hypertension (2) Lipid disorder: Code(s): E78.9 - Disorder of lipoprotein metabolism, unspecified (3) Gilbert syndrome: Code(s): E80.4 - Gilbert syndrome Plan Patient is a 59-year-old female came in today for a follow-up appointment Patient is in her usual state of health offer no new complaints today She is taking her medications without any side effects. Blood pressure is stable with atenolol 50 mg Patient is also on simvastatin 10 mg for lipid control and baby aspirin along with vitamin-D supplement Patient is due for labs , I have changed the order to nonfasting Last set of lab was October of this year She also a colonoscopy done recently Patient will return in November now for physical exam Orders: Orders Complete Blood Count Auto Diff Today E78.9 - Disorder of lipoprotein metabolism, unspecified, E80.4 - Gilbert syndrome, I10 - Essential (primary) hypertension Comprehensive Met. Panel Today E78.9 - Disorder of lipoprotein metabolism, unspecified, E80.4 - Gilbert syndrome, I10 - Essential (primary) hypertension LDL Cholesterol Direct Today E78.9 - Disorder of lipoprotein metabolism, unspecified, E80.4 - Gilbert syndrome, I10 - Essential (primary) hypertension Coding Level of Care Code Est Pt Level 3 (53250) Diagnoses Hypertension, essential I10 Lipid disorder E78.9 Gilbert syndrome E80.4 Additional Codes KALYAN-7 Assessment Billing - KALYAN-7 Assessment Tool: KALYAN-7 Assessment 30388 ([id number])
== END 2024-06-04 09:35 | disposition home or self-care (01) ==
PROVIDERS: PCP Internal Medicine; Visit Provider Internal Medicine
DX: I10 Essential (primary) hypertension (principal); E78.9 Disorder of lipoprotein metabolism, unspecified; E80.4 Gilbert syndrome
CPT/HCPCS: 99213

== ENCOUNTER 2024-06-07 07:42 | Outpatient (REF) | payer BC, SELFPAY ==
[2024-06-07 10:11] LABS: MANUAL DIFF FLAG NO
[2024-06-07 10:17] LABS: Basophils Percent Auto 0.4 % (0-2); Eosinophils Absolute Auto 0.2 X10*3/uL (0.0-0.4); Eosinophils Percent Auto 3.3 % (0-4); Hematocrit 40.5 % (37.0-47.0); Hemoglobin 13.4 g/dl (12.0-16.0); Imm Gran Abs Auto 0.02 X10*3/uL (0.00-0.03); Imm Gran Pct Auto 0.3 % (0.0-0.4); Lymphocytes Absolute Auto 2.2 X10*3/uL (1.2-4.9); Lymphocytes Percent Auto 30.7 % (20-40); Mean Corpuscular HGB Conc 33.1 g/dl (31.0-35.0); Mean Corpuscular Hemoglobin 29.3 pg (27.0-33.0); Mean Corpuscular Volume 88.4 fL (80.0-98.0); Mean Platelet Volume 12.4 fL (9.4-12.3); Monocytes Absolute Auto 0.5 X10*3/uL (0.1-1.2); Monocytes Percent Auto 7.5 % (2-11); Neutrophils Absolute Auto 4.2 x10*3/uL (2.0-8.3); Neutrophils Percent Auto 57.8 % (45-73); Platelet Count 215 X10*3/uL (160-400); Red Blood Count 4.58 X10*6/uL (4.20-5.50); Red Cell Distribution Width 13.1 % (11.0-16.0); White Blood Count 7.2 X10*3/uL (4.8-10.8)
[2024-06-07 10:52] LABS: Alanine Aminotransferase 15 U/L (0-31); Albumin Level 4.4 g/dL (3.5-5.0); Alkaline Phosphatase 56 U/L (39-117); Anion Gap 12 (12-20); Aspartate Amino Transferase 15 U/L (5-31); Bilirubin Total 1.5 mg/dL (0.0-1.0); Blood Urea Nitrogen 31 mg/dL (9-16); Calcium 10.1 mg/dL (8.4-10.2); Carbon Dioxide 27 mmol/L (22-29); Chloride 107 mmol/L (96-108); Cholesterol 177 mg/dL (<200); Estimated Glomerular Filt Rate > 60; Glucose Random 97 mg/dL (60-115); HDL Cholesterol 50 mg/dL (>40); LDL Cholesterol Calculated 109 mg/dL (<100); Potassium 4.2 mmol/L (3.3-5.1); Sodium 142 mmol/L (135-145); Total Protein 7.3 g/dL (6.5-8.0); Triglycerides 92 mg/dL (<150)
[2024-06-08 13:14] LABS: LDL Cholesterol Direct 92 mg/dL (<100)
== END 2024-06-07 07:43 | disposition home or self-care (01) ==
LOC: HO.HMGCLDS 07:42
PROVIDERS: PCP Internal Medicine; Visit Provider Internal Medicine
DX: I10 Essential (primary) hypertension (principal); E80.4 Gilbert syndrome; E78.9 Disorder of lipoprotein metabolism, unspecified
CPT/HCPCS: 36415; 80053; 80061; 83721; 85025

== ENCOUNTER 2024-06-18 07:49 | Outpatient (AMB) | payer BC, SELFPAY ==
--- NOTE | 2024-06-18 08:06 | A.OFFVIS_ITS ---
Vital Signs 06/18/24 08:10 Height 5 ft 2 in Weight 140 lb 3.424 oz BMI 25.6 BP 127/61 Blood Pressure Location Lt brachial Position Sitting Pulse 57 Pulse Source Pulse Oximeter Pulse Oximetry (%) 100 Oxygen Delivery Method Room Air Intake Visit Reasons: S/P Garrison; [place] Intake Note: Urvashi is a 59 year old female who presents to the office today for a s/p colonoscopy. Pt states she is overall feeling well. Allergies pollen Allergy (Unknown, Uncoded 06/18/24 08:06) unknown HPI HPI S/P Garrison; Kelby: Details: LAST VISIT: Colon cancer screening Plan Patient denies any GI, cardiac or respiratory symptoms. Denies any issues with anesthesia in the past. Denies any history of sleep apnea. No history infectious diseases in the past or present. On low dose aspirin. No family or personal history of colon cancer or polyps. Patient denies melena, hematochezia, unintentional weight loss or ribbon like stools. Discussed at length the pre-procedure, prep, diet & medications as well as what to expect prior, during and after the procedure. Due to occasional constipation patient will start Dulcolax prep 1 week before procedure with 4 tablets of Dulcolax at noon day before procedure followed by split MiraLax prep. Stressed the importanc e of good bowel prep. Recommended the use of Vaseline or Calmoseptine OTC & baby wipes with bowel movements to promote comfort. Patient verbalizes understanding and agrees to plan of care. She was given the opportunity to ask questions and all questions answered. We will see her after the procedure. New bisacodyl (Dulcolax (bisacodyl)) Start taking 2 tablet every night 7 days before the procedure and 1 day before procedure take 4 tablets at noon time followed by MiraLax prep 10 mg (2 x 5 mg) PO BEDTIME 16 tabs 0RF Z12.11 polyethylene glycol 3350 (Miralax) As directed by gastroenterology department at [facility] 238 grams PO ONCE 238 grams 0RF Z12.11 COLONOSCOPY: Findings: Terminal Ileum-not intubated due to tortuous colon and looping Cecum:normal Ascending Colon: normal Transverse Colon -normal Descending Colon:normal Sigmoid Colon: normal Rectum: Retroflexion with small internal hemorrhoids seen, grade I Anorectum - normal Intervention: none Colon preparation: [place] Bowel Preparation Scale Right colon; 2 Transverse colon: 2 Left colon; 2 (0 = Unprepared colon segment with mucosa not seen due to solid stool that cannot be cleared. 1 = Portion of mucosa of the colon segment seen, but other areas of the colon segment not well seen due to staining, residual stool and/or opaque liquid. 2 = Minor amount of residual staining, small fragments of stool and/or opaque liquid, but mucosa of colon segment seen well. 3 = Entire mucosa of colon segment seen well with no residual staining, small fragments of stool or opaque liquid) Impression and Post Procedure Diagnosis: internal hemorrhoids Plan: High fiber diet leaflet Avoid straining at stool, epsom salts and sitz bath, anusol supps or cream Repeat Colonoscopy in 10 years or earlier if clinically indicated TODAY'S VISIT Patient is here today for follow-up and to discuss colonoscopy results. Patient denies any ill effects from the prep, anesthesia or procedure itself. Patient reports that she has been feeling well. Patient had normal colonoscopy and recommendation was made for 10 year screening. Patient reports that she has been feeling well, occasional constipation depending on what she eats. Patient tries to eat more fiber and more vegetables. Patient denies any melena, hemat ochezia. Patient denies any dyspepsia, dysphagia or odynophagia. 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 to a significant other at home: Yes (grandson) Patient Tobacco Use Status: Never used Tobacco e-Cigarette/Vaping Use: Never Used service: No Current occupational status: employed Cognitive needs: No Hearing needs: No Vision needs: Yes Review of Systems Const Denies weight gain and Denies weight loss ENT Reports no additional complaints, Denies dysphagia and Denies odynophagia Card Reports no additional complaints Resp Reports no additional complaints GI Denies abdominal pain, Denies belching, Denies melena, Denies bloating, Reports constipation (Occasional), Denies dysphagia, Denies excessive flatus, Denies dyspepsia, Denies heartburn, Denies diarrhea, Denies loose stools, Denies nausea, Denies odynophagia and Denies vomiting Reports no additional complaints Musc Reports no additional complaints Neuro Reports no additional complaints Psych Reports no additional complaints Endo Reports no additional complaints Physical Exam Vital Signs: Last Vital Signs Pulse 57 06/18/24 08:10 BP 127/61 06/18/24 08:10 Pulse Ox 100 06/18/24 08:10 Oxygen Delivery Method Room Air 06/18/24 08:10 BMI result Body Mass Index 25.6 Const General: healthy appearing, no acute distress and well developed Nutritional Appearance: well nourished Orientation/consciousness: patient oriented x3 Resp Effort & Inspection: normal respiratory effort, able to speak in complete sentences, no tracheal deviation and symmetric chest movement Auscultation: clear to auscultation bilaterally Cardio Rate: regular rate GI Inspection: Yes normal to inspection and No distended Palpation (GI): Soft to palpation, not firm, nontender and No hepatosplenomegaly present Auscultation: normal bowel sounds General: Yes no CVA tenderness Back/Spine/Pelvis Back: no CVA tenderness Skin General skin exam: elasticity normal, turgor normal and dry skin Neuro General: patient oriented x3 Psych Appearance: grossly normal Mental Status: mental status grossly normal Assessment & Plan Assessment & Plan (1) Status post colonoscopy: Code(s): Z98.890 - Other specified postprocedural states (2) Constipation: Code(s): K59.00 - Constipation, unspecified Qualifiers: Constipation type: slow transit constipation Qualified Code(s): K59.01 - Slow transit constipation Plan Colonoscopy recommended in 10 years, sooner if clinically necessary. Patient has no family history of CRC. Increase fiber intake. Patient may take probiotics. Patient will take senna to help her move her bowels better. Increase fluid intake and activity to promote better bowel motility. Patient will follow-up with us on as-needed basis. She is agreeable to this plan and verbalizes understanding of instructions. She was given the opportunity to ask questions and all questions answered. Thank you for allowing me to participate in her care Medications: New sennosides (Natural Senna Laxative) 17.2 mg (2 x 8.6 mg) PO BEDTIME 60 tabs 3RF constipation K59.00 - Constipation, unspecified Coding Level of Care Code Est Pt Level 3 (97552) Diagnoses Status post colonoscopy Z98.890 Slow transit constipation K59.01 Constipation type: slow transit constipation Time Spent (min) 25 Comment 15 minutes spent with patient and additional 10 minutes spent reviewing her records
[2024-06-18 08:10] VITALS: BP 127/61; PULSE 57; O2SAT 100; BMI 25.6
== END 2024-06-18 08:20 | disposition home or self-care (01) ==
PROVIDERS: PCP Internal Medicine; Visit Provider Nurse Practitioner Family
DX: Z98.890 Other specified postprocedural states (principal); K59.01 Slow transit constipation
CPT/HCPCS: 99213

== ENCOUNTER → 2024-06-18 07:49 | Outpatient (BNVA) | payer BC, SELFPAY | PROVIDERS: PCP Internal Medicine; Visit Provider Nurse Practitioner Family ==

== ENCOUNTER 2024-12-01 08:51 | Outpatient (AMB) | payer BC, SELFPAY ==
--- NOTE | 2024-12-01 08:52 | A.OFFPC_ITS ---
Vital Signs 12/01/24 08:57 Height 5 ft 2 in Weight 141 lb BMI 25.8 BP 100/60 Blood Pressure Location Rt brachial Position Sitting Respiration 15 Pulse 60 Pulse Source Pulse Oximeter Temp 98.0 F Temp Source Oral Pulse Oximetry (%) 100 Oxygen Delivery Method Room Air Intake Visit Reasons: PE per Dr. Ernst Allergies pollen Allergy (Unknown, Uncoded 12/01/24 08:58) unknown Medication List - Last Reconciled 12/01/24 by Manoj Capellan MD aspirin (Adult Low Dose Aspirin) 81 mg PO DAILY atenolol 50 mg PO DAILY 90 days cholecalciferol (vitamin D3) 25 mcg PO DAILY simvastatin 10 mg PO DAILY Tobacco use date assessed: 12/01/24 Dental Screening Dental Screen Date: 12/01/24 Did you have a dental visit in the last 12 months?: Yes Did you have a dental problem in the last 6 months where you did not have access to dental care?: No Was dental information given to patient?: Patient has dentist HPI PE per Dr. Ernst HPI Details History of Present Illness - The patient is a 59-year-old female pr esenting for an annual physical exam. - The patient is currently on Atenolol 5 0 mg for Essential Hypertension. - Simvastatin 10 mg is being used to man age her hyperlipidemia. Last recorded LDL was 109 mg/dL. - Gilbert Syndrome is a family condition , with consistently elevated bilirubin levels. - Reporting a colonoscopy from April, she no longer requires laxatives for constipation. - Missed mammogram in 2023 and is having difficulty accessing the 2022 mammogram report. - Reports issues with knees since , but is without current knee pain. 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 Health Maintenance - Colonoscopy performed in April last y ear with no ongoing constipation issues. - Mammogram was last conducted in [facility] 2022; patient reported difficulties obtaining follow-up. - Blood tests, including CBC and kidney function, were performed in May and reported as normal. Medications - Atenolol 50 mg daily for Essential Hyp ertension - Simvastatin 10 mg daily for Hyperlipid emia - Vitamin D supplementation - Medication for constipation, previousl y taken but not currently needed Employment - Currently employed at a [employer], worki ng night shifts from 11:00 PM to 7:30 AM, Friday to Friday. - Engaged in manufacturing medical produ [employer] and reports no stress-related work issues. Diagnostic results - LDL: 109 mg/dL - CBC: Normal - Kidney function tests: Normal - Blood tests from May: Normal Patient Instructions - Patient advised to complete routine [employer] work. - Plan to follow up with gynecology for a breast exam. - Maintain current medication regimen. - Continued monitoring and management of hypertension and hyperlipidemia. Review of Systems - General: No fever no chills - Neurological: No headaches no dizzin ess - Ear nose throat: No sore throat no hearing difficulty no ear pain - Cardiovascular: No syncope, no chest pain, no palpitations - Gastrointestinal: No nausea vomiting or diarrhea - Endocrine: No polyuria polydipsia no heat intolerance - Genitourinary: No dysuria - Skin: No new complaints Physical Exam General: Cooperative, healthy appearing, comfortable, no acute distress Orientation: Patient oriented x3 Limitations: none Head: Normal to inspection Ears: Within normal limit visually Nose: Normal external nose present Face and sinus: Normal facial exam Eyes: Appearance normal, extraocular movement intact pupils reactive Neck: Normal visual inspection and supple Respiratory: Normal respiratory effort and able to speak in complete sentences. Clear to auscultation, no stridor Cardiovascular: S1 and S2 GI: Normal to inspection. Soft to palpation and nontender Skin: Turgor normal, no acute findings Neuro: Patient oriented x3, motor sensory intact, balance intact, tandem pass Extremities: Normal to inspection, lateral need effect due to complicated no current pain when walking [facility] Surgical History History of surgery History of foot surgery History of section Family History Father Diabetes mellitus History of heart attack Mother Brain cancer Social History Housing: House Are you a primary care navigator to a significant other at home: Yes (grandson) Patient Tobacco Use Status: Never used Tobacco e-Cigarette/Vaping Use: Never Used service: No Current occupational status: employed Cognitive needs: No Hearing needs: No Vision needs: Yes Questionnaire PHQ-9 Over the last 2 weeks, how often have you been bothered by any of the following problems? 1. Little interest or pleasure in doing things: not at all 2. Feeling down, depressed, or hopeless: not at all 3. Trouble falling or staying asleep, or sleeping too much: several days 4. Feeling tired or having little energy: several days 5. Poor appetite or overeating: not at all 6. Feeling bad about yourself - or that you are a failure or have let yourself or your family down: not at all 7. Trouble concentrating on things, such as reading the newspaper or watching television: not at all 8. Moving or speaking so slowly that other people could have noticed. Or the opp osite - being so fidgety or restless that you have been moving around a lot more than usual: not at all 9. Thoughts that you would be better off or of hurting yourself in some way: not at all Total score: 2 Depression Screening Interpretation: Negative Depression Screening Done: Yes 57606 - PHQ-9 Billing: Yes Source: Developed by Drs. Dario Hathaway, Maki Hicks, Kaushal Cortes and colleagues, with an educational alda from [employer]. Thrive Questionnaire Date Thrive assessed: 06/04/24 I am a: Patient What is your living situation today?: I have a steady place to live Within the past 12 months, did the food you bought not last and you didn't have the money to get more?: Never true Within the past 12 months, did you worry whether your food would run out before you got money to buy more?: Never true Do you have trouble paying for medicines?: No Do you have trouble getting transportation to medical appointments?: No Do you have trouble paying your heating and electricity bill?: No Do you have trouble taking care of your child, family member or friend?: No Do you have trouble with day-to-day activities such as bathing, preparing meals, shopping, managing finances, etc.?: No Are you currently unemployed and looking for a job?: No Are you interested in more education?: No Please select the resources that you would like help with: None Currently or been in a relationship where the following occur: No concerns reported THRIVE Score: 0 KALYAN-7 AMB Questionnaire KALYAN-7 Date KALYAN - 7 assessed: 06/04/24 Source: Developed by Drs. Dario Hathaway, Maki Hicks, Kaushal Cortes and colleagues, with an educational alda from [employer]. Physical exam (Primary Care) Vital Signs: Last Vital Signs Temp 98.0 F 12/01/24 08:57 Pulse 60 12/01/24 08:57 Resp 15 12/01/24 08:57 BP 100/60 12/01/24 08:57 Pulse Ox 100 12/01/24 08:57 Oxygen Delivery Method Room Air 12/01/24 08:57 BMI result Body Mass Index 25.8 Tobacco/Smoking Status: Tobacco use Status Tobacco use date assessed 12/01/24 12/01/24 08:59 Patient Tobacco Use Status Never used Tobacco 12/01/24 08:52 e-Cigarette/Vaping Use Never Used 12/01/24 08:52 Depression Screening Interpretation: Negative Thrive Assessment: Date of Thrive Assessment Date Thrive assessed 06/04/24 12/01/24 08:52 Currently or been in a relationship where the following occur: No concerns reported Coding Level of Care Code Est Pt Prev Care 40-64y(86569) Diagnoses Adult general medical exam Z00.00 Lipid disorder E78.9 Hypertension, essential I10 Additional Codes PHQ-9 - 60222 - PHQ-9 Billing: Yes ([id number]) Assessment & Plan Assessment & Plan (1) Adult general medical exam: Code(s): Z00.00 - Encounter for general adult medical examination without abnormal findings Category: Medical (2) Lipid disorder: Code(s): E78.9 - Disorder of lipoprotein metabolism, unspecified Category: Medical (3) Hypertension, essential: Code(s): I10 - Essential (primary) hypertension Category: Medical Plan History of Present Illness - The patient is a 59-year-old female presenting for an annual physical exam. - The patient is currently on Atenolol 50 mg for Essential Hypertension. - Simvastatin 10 mg is being used to manage her hyperlipidemia. Last recorded LDL was 109 mg/dL. - Gilbert Syndrome is a family condition, with consistently elevated bilirubin levels. - Reporting a colonoscopy from April last year, she no longer requires laxatives for constipation. - Missed mammogram in 2023 and is having difficulty accessing the 2022 mammogram report. - Reports issues with knees since , but is without current knee pain. 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 Health Maintenance - Colonoscopy performed in April last year with no ongoing constipation issues. - Mammogram was last conducted in August 2023; patient reported difficulties obtaining follow-up. - Blood tests, including CBC and kidney function, were performed in May and reported as normal. Medications - Atenolol 50 mg daily for Essential Hypertension - Simvastatin 10 mg daily for Hyperlipidemia - Vitamin D supplementation - Medication for constipation, previously taken but not currently needed Employment - Currently employed at a [employer], working night shifts from 11:00 PM to 7:30 AM, Friday to Friday. 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 Diagnostic results - LDL: 109 mg/dL - CBC: Normal - Kidney function tests: Normal - Blood tests from May: Normal Patient Instructions - Patient advised to complete routine lab work. - Plan to follow up with gynecology for a breast exam. - Maintain current medication regimen. - Continued monitoring and management of hypertension and hyperlipidemia. Orders: Orders Comprehensive Met. Panel Today E78.9 - Disorder of lipoprotein metabolism, unspecified, I10 - Essential (primary) hypertension
[2024-12-01 08:57] VITALS: BP 100/60; PULSE 60; RESP 15; TEMP 36.7; O2SAT 100; BMI 25.8
--- OUTSIDE RECORDS SUMMARY | 2024-12-01 09:36 | XMS_ITS ---
Author Organization [facility] Address [address] [place] [address] Care Team Providers Care Geodesy Teacher Name Role Phone Timi Aranda Primary Care Provider Unavailabl Keturah Smith [phone] REASON FOR VISIT SD cx Encounters Encounter Location Date Provider Diagnosis [address] [address] 01/21/2024 Keturah Garcia Plan Of Treatment No Information Progress Notes * Silvio VALLADARESOB:[birth year] (58 yo F)Acc No.[id number]:01/21/2024 Patient:?Lu Valladares :1965???Age:58 Y???Sex:Female Address:[address] [place] [id number] * true * Date:? Generated for Vance perdomo/Logan/eTransmitting on:?12/01/2024 09:36 AM EST
--- OUTSIDE RECORDS SUMMARY | 2024-12-01 09:37 | XMS_ITS ---
Author Organization [facility] Address [address] [place] [address] Care Team Providers Care Metrology Engineer Name Role Phone Timi Aranda Primary Care Provider Keturah Aviles Unavailable [phone] Allergies No Known Allergies Medications Medication SIG [...] 01/21/2024 Encounters Encounter Location Date Provider Diagnosis [address] [address] 01/21/2024 Keturah Garcia Plan Of Treatment No Information Progress Notes * Silvio VALLADARESOB:[birth year] (59 yo F)Acc No.[id number]:01/21/2024 Progress Notes Patient:?Lu VALLADARES Provider:?Keturah Garcia DPM :1965???Age:58 Y???Sex:Female D ate:01/21/2024 Address:[address] [facility] [place] Pcp:Timi Aranda Subjective: * Chief Complaints: * ??? * ROS:?General/Constitutional:?Nausea?denies.?Vomiting?denies.?Hunger Thirst?denies.?Loss appetite?denies.?Chills?denies.?Fatigue?denies.?Fever?denies.?Night Sweats?denies.?Unexplained weight loss?denies.?Unexplained weight gain?denies.?HEENTM:?Dentures?denies.?Dizziness?denies.?Glasses/contacts?denies.?Retinopathy?de nies.?Blurred/double vision?denies.?TMJ?denies.?Discharge/drainage?denies.?Implants?denies.?Sore throat?denies.?Dental implants?denies.?Hard of hearing ?denies.?Difficulty chewing/swallowing/speaking?denies.?Nose bleeds?denies.?Sore mouth?denies.?Respiratory:?On Oxygen?denies.?Pneumonia/pleurisy?denies.?Bronchitis?denies.?Emphysema?denies.?C oughing?denies.?Cough blood?denies.?Shortness of breath?denies.?Wheezing?denies.?Cardiovascular:?Pacemaker?denies.?MVP?denies.?WPW?denies.?CHF?denies.?Heart attack?denies.?Septal defect?denies.?Rapid beat?denies.?Chest pain ?denies.?Atrial Fib.?denies.?Murmur/Palpitations?denies.?Gastrointestinal:?Hemorrhoids?denies.?Stomach/Abdominal pain?denies.?Dark blood stool?denies.?Irritable bowel ?denies.?Constipation?denies.?Diarrhea?denies.?Hematology:?Swelling?denies.?Clots?denies.?Varicose Veins?denies.?Bruising?denies.?Bleeding problem?denies.?Genitourinary:?Blood urine?denies.?Frequent/Painfu/urination/bladder control?denies.?Kidney stones?denies.?Infection (UTI)?denies.?Nephropathy?denies.?sex trans dis (STD)?denies.?Prostate?denies.?Musculoskeletal:?Hammertoes?denies.?Bunions?denies.?Back Pain?denies.?Muscle Cramps/ Resting?denies.?Muscle cramps / walking?denies.?Generalized aches and pains?denies.?Weakness?denies.?Integ.:?Melendez?denies.?Scars?denies.?Corns/calluses?denies.?Ingrown nails?denies.?Painful nails?denies.?Open Sores?denies.?Rashes?denies.?Neurologic:?Difficulty sleeping?denies.?Brain disorder?denies.?Numbness?denies.?Balance trouble?denies.?Confusion?denies.?Fainting/blackouts?denies.?Tingling?denies.?Tr emors?denies.? * Medical History:? * Surgical History:?heel surge ry 2004. * Family History:?Mother: dece ased, cancer.?Father: .?Siblings: high blood pressure, diagnosed with Family history of arthritis, Diabetic - NIDDM.? * Social History:?Tobacco Use:?Tobacco Use/Smoking?Are you a:?nonsmoker ?Tobacco use other than smoking?Are you an other tobacco user??No ???Drugs/Alcohol:?Drugs?Have you used drugs other than those for medical reasons in the past 12 months??No ?Alcohol Screen?Did you have a drink containing alcohol in the past year??No ?Points?0 ?Interpretation?Negative ???Miscellaneous:?Caffeine: yes. 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 * Medications:?Taking Vitamin K2 , Taking Vitamin D3 125 MCG (5000 UT) Tablet Chewable 1 tablet Orally Once a day , Taking Atenolol 50 MG Tablet 1 tablet Orally Once a day * Allergies:?N.K.D.A. Objective: * Vitals:?Ht: 5 ft 1 in, Wt:14 0, BMI:26.45, Shoe size: 8, Ht-cm: 154.94 cm, Wt-k.5 kg. Assessment: Plan: * Treatment: * Images: * The named appointment provid er may or may not be the originator of this progress note, and it is not deemed complete until electronically signed by the appointment provider. Sign off status: Pending * Provider:?Keturah Garcia DPM Date:?2023 Generated for Vance perdomo/Logan/Simonitting on:?12/01/2024 09:36 AM EST
--- OUTSIDE RECORDS SUMMARY | 2024-12-01 09:37 | XMS_ITS ---
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 Generated for Vance perdomo/Logan/eTransmitting on:?12/01/2024 09:36 AM EST
--- OUTSIDE RECORDS SUMMARY | 2024-12-01 09:37 | XMS_ITS | Patient Health Record ---
Author Organization [facility] Address [address] [place] [address] Care Team Providers Care Stores Despatch Hand Name Role Phone Timi Aranda Primary Care Provider Keturah Aviles Unavailable [phone] Allergies No Known Allergies Reason For Referral No Information Medications Medication SIG (Take, Route, Frequency, Duration) [...] Are you an other tobacco user? No Encounters Encounter Location Date Provider Diagnosis [address] [address] 01/21/2024 Keturah Garcia Plan Of Treatment No Information Insurance Providers Payer Name Payer Address Payer Phone Subscriber Number Group Number Insured Name Patient Relationship to Insured Coverage Start Date Coverage End Date [employer] [address] [place] [address] [id number] Maurilio Stapleton Spouse - patient is the spouse of the insured Medical (General) History Surgical History Surgery Date(Month/Year) heel surgery 2003
== END 2024-12-01 09:23 | disposition home or self-care (01) ==
PROVIDERS: PCP Internal Medicine; Visit Provider Internal Medicine
DX: Z00.00 Encounter for general adult medical examination without abnormal findings (principal); E78.9 Disorder of lipoprotein metabolism, unspecified; I10 Essential (primary) hypertension

== ENCOUNTER → 2024-12-01 08:51 | Outpatient (BNVA) | payer BC, SELFPAY | PROVIDERS: PCP Internal Medicine; Visit Provider Internal Medicine | DX: Z00.00 Encounter for general adult medical examination without abnormal findings (principal); E78.9 Disorder of lipoprotein metabolism, unspecified; I10 Essential (primary) hypertension; Z79.899 Other long term (current) drug therapy | CPT/HCPCS: 96127 ==

== ENCOUNTER 2024-12-04 07:40 | Outpatient (REF) | payer BC, SELFPAY ==
[2024-12-04 12:35] LABS: Alanine Aminotransferase 16 U/L (0-31); Albumin Level 4.2 g/dL (3.5-5.0); Alkaline Phosphatase 71 U/L (39-117); Anion Gap 10 (12-20); Aspartate Amino Transferase 19 U/L (5-31); Bilirubin Total 1.3 mg/dL (0.0-1.0); Blood Urea Nitrogen 27 mg/dL (9-16); Calcium 9.6 mg/dL (8.4-10.2); Carbon Dioxide 26 mmol/L (22-29); Chloride 106 mmol/L (96-108); Estimated Glomerular Filt Rate > 60; Glucose Random 77 mg/dL (60-115); Sodium 138 mmol/L (135-145); Total Protein 7.5 g/dL (6.5-8.0)
== END 2024-12-04 07:41 | disposition home or self-care (01) ==
LOC: HO.HMGCLDS 07:40
PROVIDERS: PCP Internal Medicine; Visit Provider Internal Medicine
DX: E78.9 Disorder of lipoprotein metabolism, unspecified (principal); I10 Essential (primary) hypertension
CPT/HCPCS: 36415; 80053

== ENCOUNTER 2025-06-03 08:39 | Outpatient (REF) | payer BC, SELFPAY ==
--- NOTE | ~2025-06-03 | XR_ITS ---
EXAMINATION: XR LUMBAR SPINE 2-3 VIEWS HISTORY: M54.16 - Radiculopathy, lumbar region COMPARISON: There are no prior studies for comparison. FINDINGS: AP, lateral, and coned down views of the lumbar spine are submitted. Osseous mineralization is normal. Five nonrib-bearing lumbar vertebral bodies are identified, maintaining normal height without evidence of fracture or spondylolisthesis. There is mild rightward curvature. There is mild degenerative disc disease with disc space narrowing and osteophyte formation. There is osteoarthritis of the facet joints. The visualized paraspinal soft tissues are unremarkable. XR/XR lumbar spine 2-3V IMPRESSION: Mild rightward curvature and degenerative disc disease as described. Electronically signed by: Dario Price MD 06/03/2025 09:34 AM EDT
== END 2025-06-03 08:40 | disposition home or self-care (01) ==
LOC: HO.HMGCX 08:39
PROVIDERS: PCP Internal Medicine; Visit Provider Internal Medicine
DX: M54.16 Radiculopathy, lumbar region (principal); J06.9 Acute upper respiratory infection, unspecified; I10 Essential (primary) hypertension
CPT/HCPCS: 72100; 96127

== ENCOUNTER 2025-06-03 08:39 | Outpatient (AMB) | payer BC, SELFPAY ==
--- OUTSIDE RECORDS SUMMARY | 2024-01-21 06:30 | XMS_ITS ---
Author Organization [facility] Address [address] [place] [address] Care Team Providers Care Brazer Helper Induction Name Role Phone Timi Aranda Primary Care Provider UnavailKeturah Monaco Unavailable [phone] Allergies No Known Allergies Medications Medication SIG [...] 01/21/2024 Encounters Encounter Location Date Provider Diagnosis [address] [address] 01/21/2024 Keturahpercy Garcia Plan Of Treatment No Information Progress Notes * Silvio VALLADARESOB:[birth year] (60 yo F)Acc No.[id number]:01/21/2024 Progress Notes Patient: Karan Urvashi MARTINO Provider: Sagrario Garcia DPM :1965 A ge:58 Y S ex:Female Date:01/21/2024 Address:[address] [place], [place] [address] , [place], [id number] Pcp:Timi Aranda Subjective: * Chief Complaints: * [...] enies. C ardiovascular: Pacemaker d enies. M SALES REPRESENTATIVE [employer] INS[employer]ANCE d enies. W PW d enies. C [...] egative M iscellaneous: C affeine: yes. 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 * Medications: T aking Vitamin K2 , [...] 01/21/2024 Generated for Vance perdomo/Logan/Simonitting on: 0 06/03/2025 09:09 AM EDT
--- NOTE | 2025-06-03 08:41 | MHC.PC.OV ---
Vital Signs 06/03/25 08:42 Height 5 ft 2 in BMI Reason not done Patient refused/unable BP 142/72 H Blood Pressure Location Lt brachial Position Sitting Pulse 80 Pulse Source Pulse Oximeter Temp 98.1 F Temp Source Oral Pulse Oximetry (%) 96 Intake Visit Reasons: 6m follow up Allergies pollen Allergy (Unknown, Uncoded 06/03/25 08:49) unknown Medication List - Last Reconciled 06/03/25 by Manoj Capellan MD aspirin (Adult Low Dose Aspirin) 81 mg PO DAILY atenolol 50 mg PO DAILY 90 days cholecalciferol (vitamin D3) 25 mcg PO DAILY simvastatin 10 mg PO DAILY Tobacco use date assessed: 12/01/24 Dental Screening Dental Screen Date: 12/01/24 HPI 6m follow up HPI Details Interval History The patient is a 60 year old female presenting with back pain and sore throat. Back pain: - The patient has experienced recurrent episodes of back pain for four years, typically resolving within one to two days. - The current episode of left lumbar radiculitis and associated left leg pain has persisted for almost four days and is worsening. - The patient reports that her work activities, especially when bending, might exacerbate the pain - characterized by intermittent flare-ups - The patient describes the pain as a consequence of her work, which involves bending and physical labor. Sore throat: - The sore throat developed over the past few days, not associated with fever. - There is concurrent nasal congestion with a runny nose and slight cough. - The patient did not mention any specific triggering event or prior similar episodes. Social History: - The patient is employed, but specific job details were not provided. - Mandatory work on weekends was mentioned. - Discussed the need for taking time off work due to current illness; provided a note for absence from work. Problem List - Left Lumbar Radiculitis - Sore Throat - Hypertension Patient Instructions - Follow-up next week for further evaluation. - Proceed with obtaining prescribed X-ray of the lumbar spine. - operations support professionals and start prescribed medications at the pharmacy. Diclofenac, small dose of prednisone and baclofen - Take Tylenol Sinus for symptoms of a sore throat and runny nose. - Rest and refrain from work for the next two days; avoid bending and physical strain. Review of Systems - General: No fever no chills - Neurological: no dizziness - Ear nose throat: no hearing difficulty no ear pain - Cardiovascular: No syncope, no chest pain, no palpitations - Gastrointestinal: No nausea vomiting or diarrhea - Endocrine: No polyuria polydipsia no heat intolerance - Genitourinary: No dysuria , no blood in urine Physical Exam General: No acute distress HEENT: Sore throat, runny nose Neck: Supple Respiratory system: Able to talk in full sentences, no audible wheeze Cardiovascular: S1-S2 regular in rate and rhythm Gastrointestinal: No pain Back: Pain located over left lumbar area, Left lumbar radiculitis, left leg pain straight leg mildly positive left side CORE EXTRUDER: Alert awake oriented x3 motor sensory intact Skin: Normal turgor PFSH Surgical History History of surgery History of foot surgery History of section Family History Father Diabetes mellitus History of heart attack Mother Brain cancer Social History Housing: House Are you a primary client care manager to a significant other at home: Yes (grandson) Patient Tobacco Use Status: Never used Tobacco e-Cigarette/Vaping Use: Never Used service: No Current occupational status: employed Cognitive needs: No Hearing needs: No Vision needs: Yes Questionnaire Thrive Questionnaire Date Thrive assessed: 12/01/24 I am a: Patient What is your living situation today?: I have a steady place to live Within the past 12 months, did the food you bought not last and you didn't have the money to get more?: Often true Within the past 12 months, did you worry whether your food would run out before you got money to buy more?: Often true Do you have trouble paying for medicines?: Yes Do you have trouble getting transportation to medical appointments?: No Do you have trouble paying your heating and electricity bill?: No Do you have trouble taking care of your child, family member or friend?: No Do you have trouble with day-to-day activities such as bathing, preparing meals, shopping, managing finances, etc.?: No Are you currently unemployed and looking for a job?: No Are you interested in more education?: No Please select the resources that you would like help with: None Currently or been in a relationship where the following occur: No concerns reported THRIVE Score: 2 AUDIT C Alcohol Use Questionnaire (AUDIT-C) 1. How often do you have a drink containing alcohol?: Never 3. How often do you have six or more drinks on one occasion?: Never Total Score: 0 Score Reviewed/Action Taken: Yes KALYAN-7 AMB Questionnaire KALYAN-7 Date KALYAN - 7 assessed: 06/03/25 Feeling nervous, anxious, or on edge: 0 = Not at all Not being able to stop or control worryin = Not at all Worrying too much about different things: 0 = Not at all Trouble relaxin = Not at all Being so restless that it is hard to sit still: 0 = Not at all Becoming easily annoyed or irritable: 0 = Not at all Feeling afraid as if something awful might happen: 0 = Not at all Total KALYAN-7 score (0-4 normal; 5-9 mild; 10-14 moderate; 15-21 severe): 0 Source: Developed by Drs. Dario Hathaway, Maki Hicks, Kaushal Cortes and colleagues, with an educational alda from [employer]. KALYAN-7 Assessment Billing KALYAN-7 Assessment Tool: KALYAN-7 Assessment 98649 Physical exam (Primary Care) Vital Signs: Last Vital Signs Temp 98.1 F 06/03/25 08:42 Pulse 80 06/03/25 08:42 BP 142/72 H 06/03/25 08:42 Pulse Ox 96 06/03/25 08:42 Tobacco/Smoking Status: Tobacco use Status Tobacco use date assessed 12/01/24 06/03/25 08:42 Patient Tobacco Use Status Never used Tobacco 06/03/25 08:42 e-Cigarette/Vaping Use Never Used 06/03/25 08:42 Thrive Assessment: Date of Thrive Assessment Date Thrive assessed 12/01/24 06/03/25 08:42 Currently or been in a relationship where the following occur: No concerns reported Coding Level of Care Code Est Pt Level 3 (99093) Diagnoses Left lumbar radiculitis M54.16 Upper respiratory tract infection, unspecified type J06.9 URI type: unspecified URI Hypertension, essential I10 Additional Codes KALYAN-7 Assessment Billing - KALYAN-7 Assessment Tool: KALYAN-7 Assessment 45665 ([id number]) Assessment & Plan Assessment & Plan (1) Left lumbar radiculitis: Code(s): M54.16 - Radiculopathy, lumbar region Category: Medical (2) Upper respiratory infection: Code(s): J06.9 - Acute upper respiratory infection, unspecified Category: Medical Qualifiers: URI type: unspecified URI Qualified Code(s): J06.9 - Acute upper respiratory infection, unspecified (3) Hypertension, essential: Code(s): I10 - Essential (primary) hypertension Category: Medical Plan Interval History The patient is a 60 year old female presenting with back pain and sore throat. Back pain: - The patient has experienced recurrent episodes of back pain for four years, typically resolving within one to two days. - The current episode of left lumbar radiculitis and associated left leg pain has persisted for almost four days and is worsening. - The patient reports that her work activities, especially when bending, might exacerbate the pain - characterized by intermittent flare-ups - The patient describes the pain as a consequence of her work, which involves bending and physical labor. Sore throat: - The sore throat developed over the past few days, not associated with fever. - There is concurrent nasal congestion with a runny nose and slight cough. - The patient did not mention any specific triggering event or prior similar episodes. Social History: - The patient is employed, but specific job details were not provided. - Mandatory work on weekends was mentioned. - Discussed the need for taking time off work due to current illness; provided a note for absence from work. Problem List - Left Lumbar Radiculitis - Sore Throat - Hypertension Patient Instructions - Follow-up next week for further evaluation. - Proceed with obtaining prescribed X-ray of the lumbar spine. - operations support professionals and start prescribed medications at the pharmacy. Diclofenac, small dose of prednisone and baclofen - Take Tylenol Sinus for symptoms of a sore throat and runny nose. - Rest and refrain from work for the next two days; avoid bending and physical strain. Orders: Orders XR lumbar spine 2-3V Today M54.16 - Radiculopathy, lumbar region Medications: New diclofenac sodium take it with food 75 mg PO BID 20 tabs 0RF pain 10 days prednisone 10 mg PO DAILY 5 tabs 0RF 5 days baclofen 10 mg PO BEDTIME 30 tabs 0RF
[2025-06-03 08:42] VITALS: BP 142/72; PULSE 80; TEMP 36.7; O2SAT 96
--- OUTSIDE RECORDS SUMMARY | 2025-06-03 09:09 | XMS_ITS | Patient Health Record ---
[facility] Address [address] [place] [address] Care Team Providers Care Wildlife Conservation Professor Name Role Phone Timi Aranda Primary Care Provider Mike GarciaKeturah Unavailable [phone] Allergies No Known Allergies Reason For Referral [...] Are you an other tobacco user? No Plan Of Treatment No Information Insurance Providers Payer Name Payer Address Payer Phone Subscriber Number Group Number Insured Name Patient Relationship to Insured Coverage Start Date Coverage End Date [facility] All Others [address] [place] [address] [phone] [id number] Daya Maurilio Spouse - patient is the spouse of the insured Medical (General) History Surgical History Surgery Date(Month/Year) heel surgery 2003
== END 2025-06-03 09:03 | disposition home or self-care (01) ==
LOC: HO.HMCC 08:40
PROVIDERS: PCP Internal Medicine; Visit Provider Internal Medicine
DX: M54.16 Radiculopathy, lumbar region (principal); J06.9 Acute upper respiratory infection, unspecified; I10 Essential (primary) hypertension

== ENCOUNTER → 2025-06-03 09:10 | Outpatient (BNV) | payer BC, SELFPAY | PROVIDERS: PCP Internal Medicine; Visit Provider Radiology Diagnostic Radiology | DX: M54.16 Radiculopathy, lumbar region (principal) | CPT/HCPCS: 72100 ==

== ENCOUNTER 2025-06-10 08:48 | Outpatient (AMB) | payer BC, SELFPAY ==
--- OUTSIDE RECORDS SUMMARY | 2024-01-21 06:30 | XMS_ITS ---
Author Organization [facility] Address [address] [place] [address] Care Team Providers Care Tso Name Role Phone Timi Aranda Primary Care Provider Keturah Aviles Unavailable [phone] Allergies No Known Allergies Medications Medication SIG (Take, Route, Frequency, Duration) Notes Start Date End Date Status Vitamin K2 Active Atenolol 50 MG 1 tablet Orally Once a day Active Vitamin D3 125 MCG (5000 UT) 1 tablet Orally Once a day A ctive Social History Tobacco Use: Social History Observation Description Date Details (start date - stop date) Never Smoker NA - NA Tobacco Use/Smoking Question Answer Notes Are you a: nonsmoker Alcohol Screen Question Answer Notes Did you have a drink containing alcohol in the p ast year? No Points 0 Interpretation Negative Tobacco use other than smoking: Question Answer Notes Are you an other tobacco user? No Vital Signs Height 5 ft 1 in in 01/21/2024 Weight 140 lbs 01/21/2024 BMI 26.45 kg/m2 01/21/2024 Encounters Encounter Location Date Provider Diagnosis [address] [address] 01/21/2024 Keturahpercy Garcia Plan Of Treatment No Information Progress Notes * Silvio VALLADARESOB:[birth year] (60 yo F)Acc No.[id number]:01/21/2024 Progress Notes Patient: Karan Urvashi MARTINO Provider: Sagrario Garcia DPM :1965 A ge:58 Y S ex:Female Date:01/21/2024 Address:[address] [place], [place] [address] , [place], [id number] Pcp:Timi Aranda Subjective: * Chief Complaints: * * ROS: G eneral/Constitutional: Nausea d enies. V omiting d enies. H yves Thirst d enies. L oss appetite d enies. C hills d enies. F atigue d enies.?Fever d enies. N ight Sweats d enies. U nexplained weight loss d enies. U nexplained weight gain d enies. H EENTM: Dentures d enies. D izziness d enies. G lasses/contacts d enies. R etinopathy d enies. B lurred/double vision d enies. T MJ?denies. D ischarge/drainage d enies. I mplants d enies. S ore throat d enies. D ental implants d enies. H yoanna of hearing d enies. D ifficulty chewing/swallowing/speaking d enies. N ose bleeds d enies. S ore mouth d enies. ? R espiratory: On Oxygen d enies. P neumonia/pleurisy d enies.?Bronchitis d enies. E mphysema d enies. C oughing d enies. C ough blood?denies. S hortness of breath d enies. W heezing d enies. C ardiovascular: Pacemaker d enies. M ENROLLMENT NURSE d enies. W PW d enies. C HF d enies. H eart attack d enies. S eptal defect d enies. R apid beat d enies. C hest pain d enies. A trial Fib. d enies. M urmur/Palpitations d enies. G astrointestinal: Hemorrhoids d enies. S tomach/Abdominal pain d enies. D ark blood stool d enies. I rritable bowel d enies. C onstipation d enies. D iarrhea d enies. H ematology: Swelling d enies. C lots d enies. V aricose Veins d enies. B ruising d enies. B leeding problem d enies. G enitourinary: Blood urine d enies. F requent/Painfu/urination/bladder control d enies. K idney stones d enies. I nfection (UTI) d enies. N ephropathy d enies. s ex trans dis (STD) d enies. P rostate d enies. M usculoskeletal: Hammertoes d enies. B unions d enies. B ack Pain d enies. M uscle Cramps/ Resting d enies. M uscle cramps / walking d enies.?Generalized aches and pains d enies. W eakness d enies. I nteg.: Melendez d enies. S cars d enies. C orns/calluses?denies. I ngrown nails d enies. P ainful nails d enies. O pen Sores d enies. R ashes d enies. N eurologic: Difficulty sleeping d enies. B rain disorder d enies. N umbness d enies. B alance trouble d enies. C onfusion d enies. F ainting/blackouts d enies. T ingling d enies. T remors d enies. * Medical History: * Surgical History: h eel surgery 2003. * Family History: M other: , cancer. F ather: . S iblings: high blood pressure, diagnosed with Family history of arthritis, Diabetic - NIDDM. * Social History: T obacco Use: T obacco Use/Smoking A re you a: n onsmoker Tobacco use other than smoking A re you an other tobacco user? N o D rugs/Alcohol: D rugs H ave you used drugs other than those for medical reasons in the past 12 months? N o Alcohol Screen D id you have a drink containing alcohol in the past year? N o P oints 0 I nterpretation N egative M iscellaneous: C affeine: yes. 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 * Medications: T aking Vitamin K2 , Taking Vitamin D3 125 MCG (5000 UT) Tablet Chewable 1 tablet Orally Once a day , Taking Atenolol 50 MG Tablet 1 tablet Orally Once a day * Allergies: N .K.D.A. Objective: * Vitals: H t: 5 ft 1 in, Wt:140, BMI:26.45, Shoe size: 8, Ht-cm: 154.94 cm, Wt-k.5 kg. Assessment: Plan: * Treatment: * Images: * The named appointment provid er may or may not be the originator of this progress note, and it is not deemed complete until electronically signed by the appointment provider. Sign off status: Pending * Provider: Sagrario Garcia DPM Date: 0 01/21/2024 Generated for Vance perdomo/Logan/Simonitting on: 0 06/10/2025 09:28 AM EDT
[2025-06-10 08:51] VITALS: BP 122/70; PULSE 73; O2SAT 97; BMI 27.8
--- NOTE | 2025-06-10 08:51 | MHC.PC.OV ---
Vital Signs 06/10/25 08:51 Height 5 ft 2 in Weight 152 lb BMI 27.8 BP 122/70 Blood Pressure Location Lt brachial Position Sitting Pulse 73 Pulse Source Pulse Oximeter Pulse Oximetry (%) 97 Intake Visit Reasons: 1 week follow up Allergies pollen Allergy (Unknown, Uncoded 06/10/25 08:51) unknown Medication List - Last Reconciled 06/10/25 by Manoj Capellan MD aspirin (Adult Low Dose Aspirin) 81 mg PO DAILY atenolol 50 mg PO DAILY 90 days baclofen 10 mg PO BEDTIME cholecalciferol (vitamin D3) 25 mcg PO DAILY diclofenac sodium 75 mg PO BID 10 days simvastatin 10 mg PO DAILY Tobacco use date assessed: 12/01/24 Dental Screening Dental Screen Date: 12/01/24 HPI 1 week follow up HPI Details History The patient is a 60-year-old female presenting with the need for follow-up on chronic conditions and podiatry referral. Degenerative Disc Disease: - The patient reports having issues related to degenerative disc disease, which has resulted in sciatic nerve involvement. left - The condition causes intermittent pain due to the nerve being pressured, leading to inflammation and subsequent relief. - The patient states she experiences sciatic pain that worsens and relieves, which affects her ability to work. Post-Surgical Foot Pain: - The patient experiences chronic left foot pain following a previous surgery. - The pain is managed with the use of special orthotic support, which she prefers not to remove. - The patient requests a referral to a merchandising consultant for further evaluation and management. 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 - She reports working two times a month at night, which is a schedule imposed by her employer. - Engages in physical exercises, although limited by her condition. Problem List - Hypertension - Hyperlipidemia - Degenerative Disc Disease - Sciatica - Post-Surgical Foot Pain Diagnostic results - X-ray of the back indicates degenerative disc disease and sciatic involvement Nikolai of Care - The patient expresses gratitude towards her PCP for assistance and acknowledges the care received. Patient Instructions - Book an appointment with a merchandising consultant for foot evaluation. - Continue current medications: Atenolol 50 mg and Simvastatin 10 mg. - Take Vitamin D daily. - Follow up in November for a physical examination. - Labs are needed today Review of Systems General: No fever no chills neurological: No headaches no dizziness ear nose throat: No sore throat no hearing difficulty no ear pain cardiovascular: No syncope, no chest pain, no palpitations gastrointestinal: No nausea vomiting or diarrhea endocrine: No polyuria polydipsia no heat intolerance genitourinary: No dysuria skin: No new complaints Physical Exam general: No acute distress HEENT: No acute findings neck: Supple respiratory system: Lungs are clear, no coughing cardiovascular: S1-S2 RRR gastrointestinal: No pain extremities: Left foot pain chronic MEDICAL PHYSIOLOGIST: Alert awake oriented x3 motor sensory intact , gait cautious due to knee instability skin: Normal turgor PFS Surgical History History of surgery History of foot surgery History of section Family History Father Diabetes mellitus History of heart attack Mother Brain cancer Social History Housing: House Are you a primary care transitions manager to a significant other at home: Yes (grandson) Patient Tobacco Use Status: Never used Tobacco e-Cigarette/Vaping Use: Never Used service: No Current occupational status: employed Cognitive needs: No Hearing needs: No Vision needs: Yes Questionnaire Thrive Questionnaire Date Thrive assessed: 12/01/24 I am a: Patient What is your living situation today?: I have a steady place to live Within the past 12 months, did the food you bought not last and you didn't have the money to get more?: Often true Within the past 12 months, did you worry whether your food would run out before you got money to buy more?: Often true Do you have trouble paying for medicines?: Yes Do you have trouble getting transportation to medical appointments?: No Do you have trouble paying your heating and electricity bill?: No Do you have trouble taking care of your child, family member or friend?: No Do you have trouble with day-to-day activities such as bathing, preparing meals, shopping, managing finances, etc.?: No Are you currently unemployed and looking for a job?: No Are you interested in more education?: No Please select the resources that you would like help with: None Currently or been in a relationship where the following occur: No concerns reported THRIVE Score: 2 KALYAN-7 AMB Questionnaire KALYAN-7 Date KALYAN - 7 assessed: 06/03/25 Source: Developed by Drs. Dario Hathaway, Maki Hicks, Kaushal Cortes and colleagues, with an educational alda from [employer]. Physical exam (Primary Care) Vital Signs: Last Vital Signs Pulse 73 06/10/25 08:51 BP 122/70 06/10/25 08:51 Pulse Ox 97 06/10/25 08:51 BMI result Body Mass Index 27.8 Tobacco/Smoking Status: Tobacco use Status Tobacco use date assessed 12/01/24 06/10/25 08:53 Patient Tobacco Use Status Never used Tobacco 06/10/25 08:53 e-Cigarette/Vaping Use Never Used 06/10/25 08:53 Thrive Assessment: Date of Thrive Assessment Date Thrive assessed 12/01/24 06/10/25 08:53 Currently or been in a relationship where the following occur: No concerns reported Coding Level of Care Code Est Pt Level 4 (65874) Diagnoses Hypertension, essential I10 Lipid disorder E78.9 Left foot pain M79.672 Osteoarthritis of spine with radiculopathy, lumbar region M47.26 Spinal osteoarthritis complication: with radiculopathy Vitamin D deficiency E55.9 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; M25.362 Assessment & Plan Assessment & Plan (1) Hypertension, essential: Code(s): I10 - Essential (primary) hypertension Category: Medical (2) Lipid disorder: Code(s): E78.9 - Disorder of lipoprotein metabolism, unspecified Category: Medical (3) Left foot pain: Code(s): M79.672 - Pain in left foot Category: Medical (4) DJD (degenerative joint disease), lumbar: Code(s): M47.816 - Spondylosis without myelopathy or radiculopathy, lumbar region Category: Medical Qualifiers: Spinal osteoarthritis complication: with radiculopathy Qualified Code(s): M47.26 - Other spondylosis with radiculopathy, lumbar region (5) Vitamin D deficiency: Code(s): E55.9 - Vitamin D deficiency, unspecified Category: Medical (6) Instability of both knee joints: Code(s): M25.361 - Other instability, right knee; M25.362 - Other instability, left knee Category: Medical Plan History The patient is a 60-year-old female presenting with the need for follow-up on chronic conditions and podiatry referral. Degenerative Disc Disease: - The patient reports having issues related to degenerative disc disease, which has resulted in sciatic nerve involvement. left - The condition causes intermittent pain due to the nerve being pressured, leading to inflammation and subsequent relief. - The patient states she experiences sciatic pain that worsens and relieves, which affects her ability to work. Post-Surgical Foot Pain: - The patient experiences chronic left foot pain following a previous surgery. - The pain is managed with the use of special orthotic support, which she prefers not to remove. - The patient requests a referral to a merchandising consultant for further evaluation and management. 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 - She reports working two times a month at night, which is a schedule imposed by her employer. - Engages in physical exercises, although limited by her condition. Problem List - Hypertension - Hyperlipidemia - Degenerative Disc Disease - Sciatica - Post-Surgical Foot Pain Diagnostic results - X-ray of the back indicates degenerative disc disease and sciatic involvement Nikolai of Care - The patient expresses gratitude towards her PCP for assistance and acknowledges the care received. Patient Instructions - Book an appointment with a merchandising consultant for foot evaluation. - Continue current medications: Atenolol 50 mg and Simvastatin 10 mg. - Take Vitamin D daily. - Follow up in November for a physical examination. - Labs are needed today Orders: Orders Complete Blood Count Auto Diff Today E78.9 - Disorder of lipoprotein metabolism, unspecified, I10 - Essential (primary) hypertension, M79.672 - Pain in left foot Comprehensive Met. Panel Today E78.9 - Disorder of lipoprotein metabolism, unspecified, I10 - Essential (primary) hypertension, M79.672 - Pain in left foot LDL Cholesterol Direct Today E78.9 - Disorder of lipoprotein metabolism, unspecified, I10 - Essential (primary) hypertension, M79.672 - Pain in left foot Referrals Podiatry Referral M79.672 - Pain in left foot Medications: Discontinued diclofenac sodium take it with food Discontinued Reason: Doctor's Order 75 mg PO BID 10 days 20 tabs 0RF pain baclofen Discontinued Reason: Doctor's Order 10 mg PO BEDTIME 30 tabs 0RF
--- OUTSIDE RECORDS SUMMARY | 2025-06-10 09:29 | XMS_ITS | Patient Health Record ---
[facility] Organization [facility] Address [address] [place] [address] Care Team Providers Care Director Instructional Material Name Role Phone Timi Aranda Primary Care Provider Mike greer Keturah Garcia Unavailable [phone] Allergies No Known Allergies Reason For Referral [...] Insured Coverage Start Date Coverage End Date [facility] All Others [address] [place] [address] [id number] Daya Maurilio Spouse - patient is the spouse of the insured Medical (General) History Surgical History Surgery Date(Month/Year) heel surgery 2003
== END 2025-06-10 09:10 | disposition home or self-care (01) ==
LOC: HO.HMCC 08:48
PROVIDERS: PCP Internal Medicine; Visit Provider Internal Medicine
DX: I10 Essential (primary) hypertension (principal); E78.9 Disorder of lipoprotein metabolism, unspecified; M79.672 Pain in left foot; M47.26 Other spondylosis with radiculopathy, lumbar region; E55.9 Vitamin D deficiency, unspecified; M25.361 Other instability, right knee; M25.362 Other instability, left knee